=== PATIENT | female | born 1965 | race Caucasian/White ===

== ENCOUNTER 2023-03-20 09:01 | Outpatient (AMB) | payer OTHER, SELFPAY ==
[2023-03-20 09:05] VITALS: BP 138/90; PULSE 79; RESP 13; TEMP 36.3; O2SAT 99; BMI 47.4
--- NOTE | 2023-03-20 09:05 | MHC.PC.OV ---
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 Corridor Redevelopment Manager Required: No Accompanied by: Self / Same As Patient Allergies No Known Allergies Allergy (Verified 03/20/23 09:41) Medication List - Last Reconciled 03/20/23 by Abimbola Mahmood CNP hydrochlorothiazide 25 mg PO DAILY Tobacco use date assessed: 03/20/23 Dental Screening Dental Screen Date: 03/20/23 Did you have a dental visit in the last 12 months?: Yes Did you have a dental problem in the last 6 months where you did not have access to dental care?: No Was dental information given to patient?: Patient has dentist HPI HPI Comments History of Present Illness Details 57-year-old female presents to [facility] care. She notes that she was last evaluated by her former PCP and had routine blood work done 4 years ago. She has past medical history significant for HTN and on HCTZ which she notes she has not taken for the past 3 weeks because she ran out. She notes that she has been getting her medication refill from Urgent Care clinics. She also reports persistent low back pain with right sciatica for the past year and a half. She denies tingling, numbness, loss of sensation, or loss of bowel or bladder control. She had an MRI 10 months ago which revealed bulge/slip-disc, L4 on L5. She takes Ibuprofen for severe pain with significant improvement. She states that she has been making healthy dietary choices. She is also more outdoors and walks frequently. She started using an ashley 2 weeks ago for diet and weight management. She has lost 5 lb since she started using the ashley. She denies acute symptoms at this time. She notes that her last mammogram was 5 years ago: normal Her last pap smear was 4-5 years ago: normal She states that her last colonoscopy was 7-8 years ago from her former PCP: normal She notes she has not had the shringrix vaccines. 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 1. Little interest or pleasure in doing things: not at all 2. Feeling down, depressed, or hopeless: not at all 3. Trouble falling or staying asleep, or sleeping too much: not at all 4. Feeling tired or having little energy: not at all 5. Poor appetite or overeating: not at all 6. Feeling bad about yourself - or that you are a failure or have let yourself or your family down: not at all 7. Trouble concentrating on things, such as reading the newspaper or watching television: not at all 8. Moving or speaking so slowly that other people could have noticed. Or the opposite - being so fidgety or restless that you have been moving around a lot more than usual: not at all 9. Thoughts that you would be better off or of hurting yourself in some way: not at all Total score: 0 Depression Screening Interpretation: Negative Depression Screening Done: Yes Source: Developed by Drs. Benjamín Hodge, Ghazal Terrazas, Klaus Solo and colleagues, with an educational olive from [employer]. Thrive Questionnaire Date Thrive assessed: 03/20/23 I am a: Patient What is your living situation today?: I have a steady place to live Within the past 12 months, did the food you bought not last and you didn't have the money to get more?: Never true Within the past 12 months, did you worry whether your food would run out before you got money to buy more?: Never true Do you have trouble paying for medicines?: No Do you have trouble getting transportation to medical appointments?: No Do you have trouble paying your heating and electricity bill?: No Do you have trouble taking care of your child, family member or friend?: No Do you have trouble with day-to-day activities such as bathing, preparing meals, shopping, managing finances, etc.?: No Are you currently unemployed and looking for a job?: No Are you interested in more education?: No Please select the resources that you would like help with: None Currently or been in a relationship where the following occur: no concerns reported AUDIT C Alcohol Use Questionnaire (AUDIT-C) 1. How often do you have a drink containing alcohol?: 2-4 times a month 2. How many drinks containing alcohol do you have on a typical day when you are drinking?: 1 or 2 3. How often do you have six or more drinks on one occasion?: Never Total Score: 2 COBY-7 AMB Questionnaire COBY-7 Date COBY - 7 assessed: 03/20/23 Feeling nervous, anxious, or on edge: 0 = Not at all Not being able to stop or control worryin = Not at all Worrying too much about different things: 0 = Not at all Trouble relaxin = Not at all Being so restless that it is hard to sit still: 0 = Not at all Becoming easily annoyed or irritable: 0 = Not at all Feeling afraid as if something awful might happen: 0 = Not at all Total COBY-7 score (0-4 normal; 5-9 mild; 10-14 moderate; 15-21 severe): 0 Source: Developed by Drs. Benjamín Hodge, Ghazal Terrazas, Klaus Solo and colleagues, with an educational olive from [employer]. Review of Systems Const Details: Denies chills, Denies fatigue, Denies fever(s), Denies headache(s) and Denies weakness HEENT Denies change in vision, Denies dizziness, Denies headache(s), Denies hearing loss, Denies nasal congestion, Denies sinus pain, Denies sinus pressure and Denies sore throat Card Denies chest pain, Denies lightheadedness, Denies dyspnea and Denies other (palpitations) Resp Denies cough, Denies dyspnea and Denies wheezing GI Denies abdominal pain, Denies melena, Denies hematochezia, Denies change in bowel habits, Denies dyspepsia and Denies nausea Denies hematuria and Denies dysuria Musc Reports as per HPI Skin/Breast Denies rash, Denies unusual bruising and Denies wounds Neuro Denies abnormal gait, Denies dizziness, Denies headache(s), Denies memory loss, Denies numbness, Denies Sensory deficit (Neuro), Denies tingling and Denies weakness Psych Denies anxiety, Denies depression and Denies memory loss Endo Denies cold intolerance, Denies fatigue, Denies heat intolerance, Denies polydipsia and Denies polyuria Bryce/Lymph Denies easy bleeding and Denies easy bruising Aller/Immun Denies wheezing Physical exam (Primary Care) Vital Signs: Last Vital Signs Temp 97.4 F 03/20/23 09:05 Pulse 79 03/20/23 09:05 Resp 13 03/20/23 09:05 BP 138/90 H 03/20/23 09:05 Pulse Ox 99 03/20/23 09:05 Oxygen Delivery Method Room Air 03/20/23 09:05 BMI result Body Mass Index 47.4 Tobacco/Smoking Status: Tobacco use Status Tobacco use date assessed 03/20/23 03/20/23 09:16 Patient Tobacco Use Status Never used Tobacco 03/20/23 09:16 e-Cigarette/Vaping Use Never Used 03/20/23 09:16 PHQ-9: PHQ-9 Score PHQ-9: Total score 0 03/20/23 09:19 Depression Screening Interpretation: Negative Thrive Assessment: Date of Thrive Assessment Date Thrive assessed 03/20/23 03/20/23 09:16 Currently or been in a relationship where the following occur: no concerns reported Const Other: General: no acute distress, well developed, alert and awake Nutritional Appearance: well nourished Orientation/consciousness: patient oriented x3 HENMT Head: Yes normocephalic and Yes atraumatic Ears: hearing grossly normal bilaterally and TM's normal bilaterally General nose exam: Normal external nose present and Normal nares present Mouth: Normal oral and palatal mucosa present and moist mucous membranes Teeth and gingiva: dentition normal Throat: Yes oropharynx normal Eyes Pupils: Equal, round and reactive pupils present and Pupil accommodation reflex normal EOM: EOMs intact bilaterally Neck Neck: Yes normal visual inspection, Yes no lymphadenopathy and Yes trachea midline Thyroid: Thyroid normal Carotids: no bruits Lymphatic: no lymphadenopathy noted Chest Chest palpation & inspection: normal inspection of the chest Resp Effort & Inspection: normal respiratory effort Auscultation: clear to auscultation bilaterally Cardio Rate: regular rate Rhythm: regular rhythm Heart sounds: S1 normal heart sound present, S2 normal heart sound present, no gallops, no murmurs and no rubs Bruits: no abdominal aortic bruits and no carotid bruits GI Palpation (GI): No Abdominal aortic bruit present, Soft to palpation, nontender, No hepatosplenomegaly present and No Rebound tenderness present Auscultation: normal bowel sounds General: Yes no CVA tenderness Back/Spine/Pelvis Back: no CVA tenderness Cervical Spine: cervical ROM normal and No Cervical spine tenderness Thoracic/Lumbar Spine: thoraco-lumbar ROM normal, No pain with thoraco-lumbar ROM, No thoracic spinal tenderness and No lumbar spinal tenderness Skin General: warm and dry. Normal skin color. Normal skin turgor Lesions: no lesions Rashes: no rashes Trauma: no lacerations or abrasions Wounds: no wounds Nails: normal Neuro General: patient oriented x3, gait normal and CN's II-XI intact bilaterally Cranial nerves: Yes Equal, round and reactive pupils present Cognition (Neuro): normal cognition Gait exam (Neuro): Normal gait present Motor exam (neuro): 5/5 motor strength present throughout Sensory Exam: No Sensory deficit (Neuro) Deep tendon reflexes (DTR's): Right patellar reflex intensity grade: 2+ and Left patellar reflex intensity grade: 2+ Extrem General: Yes normal to inspection, No edema and No calf tenderness Negative straight leg raise bilaterally Psych Appearance: grossly normal Affect: normal affect Attitude: cooperative Thought process: Normal thought process present Assessment and Plan Assessment & Plan (1) Normal physical examination, routine: Code(s): Z00.00 - Encounter for general adult medical examination without abnormal findings Plan: No significant physical restrictions or limitations noted. She states that her last colonoscopy was 7-8 years ago from her former PCP: normal. Will request records from former PCP and update care plan as needed. Advised to perform routine fasting blood work before her next visit. Follow-up in 1 month for labs review and hypertension. Verbalized understanding and agreed with the treatment plan. (2) High blood pressure: Code(s): I10 - Essential (primary) hypertension Qualifiers: Hypertension type: primary hypertension Qualified Code(s): I10 - Essential (primary) hypertension Plan: Her resting blood pressure is 138/90, slightly above goal of less than 140/90. She has not been taking HCTZ for the past 3 weeks because she ran out of medication. HCTZ refilled. Take as prescribed. Low-sodium diet and routine exercise encouraged. Follow-up in 1 month or return sooner with symptoms or concerns. Verbalized understanding and agreed with treatment plan. (3) Chronic low back pain with right-sided sciatica: Code(s): M54.41 - Lumbago with sciatica, right side; G89.29 - Other chronic pain Qualifiers: Back pain laterality: right Qualified Code(s): M54.41 - Lumbago with sciatica, right side; G89.29 - Other chronic pain Plan: She reports persistent low back pain with right sciatica for the past year and a half. She had an MRI 10 months ago which revealed bulge/slip-disc, L4 on L5. No tingling, numbness, loss of sensation, or loss of bowel or bladder control. She takes Ibuprofen for severe pain with significant improvement. Naproxen ordered. Take as prescribed. Warm/cool compresses encouraged. Follow-up with worsening or new symptoms. Verbalized understanding and agreed with treatment plan. (4) Morbid obesity with BMI of 45.0-49.9, adult: Code(s): E66.01 - Morbid (severe) obesity due to excess calories; Z68.42 - Body mass index [BMI] 45.0-49.9, adult Plan: She currently weighs 276 lb, BMI is 47.4. She states that she has been making healthy dietary choices. She is also more outdoors and walks frequently. She started using an ashley 2 weeks ago for diet and weight management. She has lost 5 lb since she started using the ashley. She notes she would continue to utilize the ashley before exploring order options for weight management. Instructed on the health risks of obesity and benefits of healthy weight. Healthy diet and routine exercise encouraged. Advised to return if she needs more resources for weight loss. Would referred to interface analyst/dietitian and weight management. Verbalized understanding and agreed with treatment plan. (5) Pap smear for cervical cancer screening: Code(s): Z12.4 - Encounter for screening for malignant neoplasm of cervix Plan: Her last pap smear was 4-5 years ago: normal. Referred [place] [facility] for a Pap smear test. (6) Breast cancer screening: Code(s): Z12.39 - Encounter for other screening for malignant neoplasm of breast Qualifiers: Breast cancer screening modality: mammogram Qualified Code(s): Z12.31 - Encounter for screening mammogram for malignant neoplasm of breast Plan: She notes that her last mammogram was 5 years ago: normal. Screening mammogram ordered. (7) Laboratory tests ordered as part of a complete physical exam (CPE): Code(s): Z00.00 - Encounter for general adult medical examination without abnormal findings (8) Vaccine counseling: Code(s): Z71.85 - Encounter for immunization safety counseling Plan: She notes that she has not had the Shingrix vaccines. Instructed on the health benefits of vaccinations and encouraged to get the Shingrix vaccines. Verbalized understanding and agreed with treatment plan. Orders: Orders Comprehensive Grant. Panel Fast Today Z00.00 - Encounter for general adult medical examination without abnormal findings Lipid Panel Today Z00.00 - Encounter for general adult medical examination without abnormal findings UA CC w/rflx Micro + Cult Today Z00.00 - Encounter for general adult medical examination without abnormal findings Complete Blood Count Auto Diff Today Z00.00 - Encounter for general adult medical examination without abnormal findings TSH reflex Free T4 Today Z00.00 - Encounter for general adult medical examination without abnormal findings MM screening mammo BI Today Z12.31 - Encounter for screening mammogram for malignant neoplasm of breast Referrals [facility] Referral Z12.4 - Encounter for screening for malignant neoplasm of cervix Medications: New naproxen 500 mg PO BID PRN 60 tabs 1RF pain hydrochlorothiazide 25 mg PO DAILY 30 days 30 tabs 3RF Coding Level of Care Code New Pt Level 4 (99143) New Pt Prev Care 40-64y(13205) Diagnoses Normal physical examination, routine Z00.00 Primary hypertension I10 Hypertension type: primary hypertension Chronic right-sided low back pain with right-sided sciatica M54.41; G89.29 Back pain laterality: right Morbid obesity with BMI of 45.0-49.9, adult E66.01; Z68.42 Pap smear for cervical cancer screening Z12.4 Encounter for screening mammogram for malignant neoplasm of breast Z12.31 Breast cancer screening modality: mammogram Laboratory tests ordered as part of a complete physical exam (CPE) Z00.00 Vaccine counseling Z71.85
== END 2023-03-20 10:13 | disposition home or self-care (01) ==
PROVIDERS: PCP Nurse Practitioner Family; Visit Provider Nurse Practitioner Family
DX: Z00.00 Encounter for general adult medical examination without abnormal findings (principal); I10 Essential (primary) hypertension; E66.01 Morbid (severe) obesity due to excess calories; Z68.42 Body mass index [BMI] 45.0-49.9, adult; M54.41 Lumbago with sciatica, right side; G89.29 Other chronic pain; Z12.31 Encounter for screening mammogram for malignant neoplasm of breast; Z71.85 Encounter for immunization safety counseling
CPT/HCPCS: 99386

== ENCOUNTER 2023-03-25 | Outpatient (REF) | payer OTHER, SELFPAY ==
[2023-03-25 11:13] LABS: MANUAL DIFF FLAG NO
[2023-03-25 11:21] LABS: Appearance Urine Clear; Color Urine Yellow; Glucose Urine UA Negative (Negative); Leukocyte Esterase Urine Negative (Negative); Nitrite Urine Negative (Negative); Specific Gravity - Urine 1.015 (1.005-1.025); Urine Blood Negative (Negative); Urine Ketones Negative (Negative); Urine Protein Negative (Neg-Trace)
[2023-03-25 11:40] LABS: Basophils Absolute Auto 0.1 X10*3/uL (0.0-0.2); Basophils Percent Auto 0.7 % (0-2); Eosinophils Absolute Auto 0.4 X10*3/uL (0.0-0.4); Eosinophils Percent Auto 5.9 % (0-4); Hematocrit 44.3 % (37.0-47.0); Hemoglobin 15.3 g/dl (12.0-16.0); Imm Gran Abs Auto 0.04 X10*3/uL (0.00-0.03); Imm Gran Pct Auto 0.6 % (0.0-0.4); Lymphocytes Absolute Auto 2.2 X10*3/uL (1.2-4.9); Lymphocytes Percent Auto 31.3 % (20-40); Mean Corpuscular HGB Conc 34.5 g/dl (31.0-35.0); Mean Corpuscular Hemoglobin 29.6 pg (27.0-33.0); Mean Corpuscular Volume 85.7 fL (80.0-98.0); Mean Platelet Volume 9.9 fL (9.4-12.3); Monocytes Absolute Auto 0.4 X10*3/uL (0.1-1.2); Monocytes Percent Auto 5.3 % (2-11); Neutrophils Absolute Auto 3.9 x10*3/uL (2.0-8.3); Neutrophils Percent Auto 56.2 % (45-73); Platelet Count 255 X10*3/uL (160-400); Red Blood Count 5.17 X10*6/uL (4.20-5.50); Red Cell Distribution Width 11.8 % (11.0-16.0)
[2023-03-25 12:38] LABS: Alanine Aminotransferase 28 U/L (0-31); Albumin Level 4.4 g/dL (3.5-5.0); Alkaline Phosphatase 71 U/L (39-117); Anion Gap 17 (12-20); Aspartate Amino Transferase 33 U/L (5-31); Bilirubin Total 0.6 mg/dL (0.0-1.0); Blood Urea Nitrogen 13 mg/dL (9-16); Calcium 10.2 mg/dL (8.4-10.2); Carbon Dioxide 25 mmol/L (22-29); Chloride 101 mmol/L (96-108); Cholesterol 202 mg/dL (<200); Estimated Glomerular Filt Rate > 60; Glucose Fasting 107 mg/dL (60-99); HDL Cholesterol 49 mg/dL (>40); LDL Cholesterol Calculated 124 mg/dL (<100); Potassium 3.9 mmol/L (3.3-5.1); Sodium 139 mmol/L (135-145); Total Protein 7.4 g/dL (6.5-8.0); Triglycerides 145 mg/dL (<150)
[2023-03-25 12:43] LABS: TSH reflex Free T4 1.08 uIU/mL (0.32-4.0)
== END 2023-03-25 00:01 | disposition home or self-care (01) ==
LOC: HO.WFDLDS
PROVIDERS: Visit Provider Nurse Practitioner Family
DX: Z00.00 Encounter for general adult medical examination without abnormal findings (principal)
CPT/HCPCS: 36415; 80053; 80061; 81003; 84443; 85025

== ENCOUNTER 2023-04-18 12:30 | Outpatient (AMB) | payer OTHER, SELFPAY ==
[2023-04-18 12:36] VITALS: BP 128/72; PULSE 74; O2SAT 97; BMI 47.6
--- NOTE | 2023-04-18 12:36 | MHC.PC.OV ---
Vital Signs 04/18/23 12:36 Height 5 ft 4 in Weight 277 lb 2 oz BMI 47.6 BP 128/72 Blood Pressure Location Lt brachial Position Sitting Pulse 74 Pulse Source Pulse Oximeter Pulse Oximetry (%) 97 Oxygen Delivery Method Room Air Intake Visit Reasons: 1 month HTN, labs review Intake Note: Patient is here for lab review today. Allergies No Known Allergies Allergy (Verified 04/18/23 12:37) Tobacco use date assessed: 04/18/23 HPI HPI Comments History of Present Illness Details 57-year-old female presents for hypertension and review of recent blood work. She established care almost a month ago. A physical exam was performed. Hydrochlorothiazide was refilled. Screening mammograms was ordered. She was referred to [facility] diabetes territory manager for a Pap smear test. She admits to taking her medications as prescribed. She offers no complaints and denies acute symptoms at this time. She notes that she has appointment schedule for Pap smear tests and mammogram next october. She states that she is traveling in with her to [place] and will return next September. 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 Benjamín Hodge, Ghazal Terrazas, Klaus Solo and colleagues, with an educational olive from [employer]. Review of Systems Const Details: Const Denies chills, Denies fatigue, Denies fever(s), Denies headache(s) and Denies weakness ENT Denies dizziness and Denies headache(s) Card Denies chest pain, Denies lightheadedness, Denies dyspnea and Denies other (Palpitations) Resp Denies cough, Denies dyspnea, Denies wheezing and Denies other ( shortness of breath) GI Denies abdominal pain, Denies melena, Denies hematochezia, Denies change in bowel habits, Denies dyspepsia and Denies nausea Denies hematuria and Denies dysuria Musc Denies abnormal gait, Denies myalgias, Denies arthralgias, Denies numbness and Denies tingling Skin/Breast Denies rash, Denies unusual bruising and Denies wounds Neuro Denies abnormal gait, Denies dizziness, Denies headache(s), Denies memory loss, Denies numbness, Denies Sensory deficit (Neuro), Denies tingling and Denies weakness Psych Denies anxiety, Denies depression, Denies memory loss Endo Denies cold intolerance, Denies fatigue, Denies heat intolerance, Denies polydipsia and Denies polyuria Aller/Immun Denies wheezing Physical exam (Primary Care) BMI result Body Mass Index 47.6 Tobacco/Smoking Status: Tobacco use Status Tobacco use date assessed 03/20/23 03/20/23 09:16 Patient Tobacco Use Status Never used Tobacco 03/20/23 09:16 e-Cigarette/Vaping Use Never Used 03/20/23 09:16 Thrive Assessment: Date of Thrive Assessment Date Thrive assessed 03/20/23 03/20/23 09:16 Const Other: General: no acute distress and well developed Nutritional Appearance: well nourished Orientation/consciousness: patient oriented x3 HENMT Head: Yes normocephalic and Yes atraumatic Eyes General: appearance normal, both eyes and all related structures Pupils: Equal, round and reactive pupils present EOM: EOMs intact bilaterally Resp Effort & Inspection: normal respiratory effort Auscultation: clear to auscultation bilaterally Cardio Rate: regular rate Rhythm: regular rhythm Heart sounds: S1 normal heart sound present, S2 normal heart sound present, no gallops, no murmurs and no rubs GI Palpation (GI): No Abdominal aortic bruit present, Soft to palpation, nontender, No hepatosplenomegaly present and No Rebound tenderness present Auscultation: normal bowel sounds General: Yes no CVA tenderness Back/Spine/Pelvis Back: no CVA tenderness Cervical Spine: cervical ROM normal and No Cervical spine tenderness Thoracic/Lumbar Spine: thoraco-lumbar ROM normal, No pain with thoraco-lumbar ROM, No thoracic spinal tenderness and No lumbar spinal tenderness Extrem General: Yes normal to inspection, No edema and No calf tenderness Skin General: warm and dry. Normal skin color. Normal skin turgor Lesions: no lesions Rashes: no rashes Trauma: no lacerations or abrasions Wounds: no wounds Nails: normal Neuro General: patient oriented x3, gait normal and no focal neuro deficit Cranial nerves: Yes Equal, round and reactive pupils present Cognition (Neuro): normal cognition Gait exam (Neuro): Normal gait present Sensory Exam: No Sensory deficit (Neuro) Psych Appearance: grossly normal Affect: normal affect Attitude: cooperative Thought process: Normal thought process present Assessment and Plan Assessment & Plan (1) High blood pressure: Code(s): I10 - Essential (primary) hypertension Qualifiers: Hypertension type: primary hypertension Qualified Code(s): I10 - Essential (primary) hypertension Plan: Blood pressure is 128/72, within goal of less than 140/90 Continue with current treatment regimen Low-sodium diet encouraged Will continue to monitor Follow-up in upon returning from [place] or return sooner with symptoms or concerns Verbalized understanding and agreed with treatment plan. (2) Elevated fasting glucose: Code(s): R73.01 - Impaired fasting glucose Plan: Recent lab results reviewed with the patient Fasting blood glucose was slightly elevated, 107 Will repeat fasting glucose. Advised to fast for 10-12 hours (may drink water only) before getting blood work done Follow-up upon returning from [place] or return sooner with symptoms or concerns Verbalized understanding and agreed with treatment plan. (3) Elevated LDL cholesterol level: Code(s): E78.00 - Pure hypercholesterolemia, unspecified Plan: Recent LDL is slightly elevated, 124 Advised to limit foods high in saturated fat and avoid foods high in trans fat Routine exercise encouraged Will recheck lipid levels. Advised to fast for 10-12 hours (may drink water only) and perform blood work 2-3 days before her next visit Follow-up upon returning from [place] Verbalized understanding and agreed with treatment plan. Orders: Orders Lipid Panel 3 Months E78.00 - Pure hypercholesterolemia, unspecified Glucose Fasting 3 Months R73.01 - Impaired fasting glucose Coding Level of Care Code Est Pt Level 3 (83957) Diagnoses Primary hypertension I10 Hypertension type: primary hypertension Elevated fasting glucose R73.01 Elevated LDL cholesterol level E78.00
== END 2023-04-18 12:53 | disposition home or self-care (01) ==
PROVIDERS: PCP Nurse Practitioner Family; Visit Provider Nurse Practitioner Family
DX: I10 Essential (primary) hypertension (principal); R73.01 Impaired fasting glucose; E78.00 Pure hypercholesterolemia, unspecified
CPT/HCPCS: 99213

== ENCOUNTER 2023-10-22 08:25 | Outpatient (REF) | payer OTHER, SELFPAY ==
--- NOTE | ~2023-10-22 | MM_ITS ---
EXAMINATION: MM SCREENING DIGITAL BREAST TOMOSYNTHESIS, BILATERAL CLINICAL INFORMATION: Screening. Asymptomatic. COMPARISON: Mammography: This study is compared with prior exams dating back to 2012. TECHNIQUE: Digital breast tomosynthesis is performed in both the craniocaudal and mediolateral oblique views along with computer-aided detection (CAD). Synthesized 2D images are generated from the tomosynthesis. FINDINGS: The breasts are heterogeneously dense, which may obscure small masses (ACR BI-RADS breast composition Category c). There are no suspicious masses in either breast. There are several groups of calcification in all quadrants of the left breast. In the medial aspect of the right breast right breast, there are grouped calcifications. Bilateral additional imaging with magnification mammography is indicated. There is a 23 mm oval, coarsely calcifying, benign mass in the upper outer quadrant of the right breast. This represents an involuting fibroadenoma. MM/MM tomosynthesis screening BI IMPRESSION: Bilateral calcifications warrant magnification mammography. ASSESSMENT: BI-RADS BI-RADS 0 - Incomplete: Needs additional Imaging. RECOMMENDATION: Additional views of each breast. Radiology department staff will contact the patient for additional imaging. Additional Imaging required This examination should not preclude the clinical evaluation of a suspicious palpable abnormality. This patient's information was entered into a reminder system with a target due date for their next mammogram.
== END 2023-10-22 08:26 | disposition home or self-care (01) ==
LOC: HO.MAMMO 08:25
PROVIDERS: PCP Nurse Practitioner Family; Visit Provider Nurse Practitioner Family
DX: Z12.31 Encounter for screening mammogram for malignant neoplasm of breast (principal)
CPT/HCPCS: 77063; 77067

== ENCOUNTER → 2023-10-22 09:45 | Outpatient (BNV) | payer OTHER, SELFPAY | PROVIDERS: PCP Nurse Practitioner Family; Visit Provider Radiology Diagnostic Radiology | DX: Z12.31 Encounter for screening mammogram for malignant neoplasm of breast (principal) | CPT/HCPCS: 77063; 77067 ==

== ENCOUNTER 2023-10-22 10:25 | Outpatient (AMB) | payer OTHER, SELFPAY ==
--- NOTE | 2023-10-22 10:36 | A.OFFVIS_ITS ---
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 She is doing well with no concerns. Attempting to eat a healthy diet with calcium and vitamin D and stays active with exercise-walking, recovering from sciatic pain. Currently sexually active. Denies any vaginal dryness or irritation. STI testing offered; she declined. Last pap smear; 2018, negative. History of a hysterectomy due to large fibroid. Last mammogram; pending read. Colonoscopy is UTD. Denies any family history of breast, ovarian or colon cancer. 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 Cognitive needs: No Hearing needs: No Vision needs: No Female Reproductive History Menstrual Age of Menarche: 11 control method: permanent sterilization Total pregnancies: 0 Date of Mammogram: 10/22/23 Review of Systems Const All systems reviewed & are unremarkable except as noted in HPI and below Reports as per HPI Eyes Reports no additional complaints ENT Reports no additional complaints Card Reports no additional complaints Resp Reports no additional complaints GI Reports as per HPI and Reports no additional complaints Reports as per HPI Musc Reports no additional complaints Skin/Breast Reports as per HPI Neuro Reports no additional complaints Psych Reports no additional complaints Endo Reports no additional complaints Bryce/Lymph Reports no additional complaints Aller/Immun Reports no additional complaints Physical Exam Vital Signs: Last Vital Signs BP 140/84 H 10/22/23 10:39 BMI result Body Mass Index 46.5 Const General: cooperative, healthy appearing, no acute distress, well developed and alert Orientation/consciousness: patient oriented x3 HEENT Head: Yes normal to inspection Eyes General: appearance normal, both eyes and all related structures Neck Neck: Yes normal visual inspection Thyroid: Thyroid normal Chest Chest palpation & inspection: normal inspection of the chest and other (no puckering, dimpling, peau de orange, retraction, discharge, masses) Breast/axilla inspection: normal inspection of the breasts Breast/axilla palpation: normal palpation of the breasts Resp Effort & Inspection: normal respiratory effort GI Inspection: Yes normal to inspection, Yes obesity and Yes scar Palpation (GI): Soft to palpation Rectal Exam - Female: deferred General: Yes bladder normal to palpation External Female Exam: normal external appearance and normal appearance of the urethra Speculum Exam - Vagina: normal appearance of the vagina, normal palpation and normal vaginal discharge Speculum Exam - Cervix: normal appearance of the cervix and normal palpation Bimanual exam- vagina & uterus: normal bimanual exam, normal palpation, bladder normal to palpation, normal palpation and uterus absent Bimanual Exam- Adnexa, other: no masses Skin General skin exam: no rashes or lesions noted Rashes: no rashes Neuro General: patient oriented x3 Cognition (Neuro): normal cognition Extrem General: Yes normal to inspection Psych Attitude: cooperative Thought process: Normal thought process present Assessment & Plan Assessment & Plan (1) Encounter for well woman exam with routine gynecological exam: Code(s): Z01.419 - Encounter for gynecological examination (general) (routine) without abnormal findings Category: Medical Plan: Discussed: Current recommendations for pap smears per ASCCP guidelines. Breast awareness, periodic self breast exams and yearly mammogram. Maintain a healthy lifestyle, well balanced diet including Calcium 1,200 mg and Vitamin D 600 IU daily, and routine exercise. Contact the office with any postmenopausal bleeding. Patient verbalizes understanding and agrees to the plan of care. She was given opportunity to ask questions and all questions were answered to the best of my ability. RTO in 1 year for annual mobile web application developer exam. This note is constructed using voice recognition software. While every effort has been made to ensure accuracy, sponge press operator errors may have been included. Coding Level of Care Code New Pt Prev Care 40-64y(91512) Diagnoses Encounter for well woman exam with routine gynecological exam Z01.419
[2023-10-22 10:39] VITALS: BP 140/84; BMI 46.5
== END 2023-10-22 12:45 | disposition home or self-care (01) ==
PROVIDERS: PCP Nurse Practitioner Family; Visit Provider Advanced Practice Midwife
DX: Z01.419 Encounter for gynecological examination (general) (routine) without abnormal findings (principal)
CPT/HCPCS: 99386

== ENCOUNTER 2023-10-22 11:04 | Outpatient (REF) | payer OTHER, SELFPAY ==
[2023-10-29 12:49] LABS: HPV mRNA E6/E7 rflx Not Detected (Not Detected)
== END 2023-10-22 11:05 | disposition home or self-care (01) ==
LOC: HO.LNP 11:04
PROVIDERS: Visit Provider Advanced Practice Midwife
DX: Z12.4 Encounter for screening for malignant neoplasm of cervix (principal)
CPT/HCPCS: 87624; 88142

== ENCOUNTER 2023-12-06 14:30 | Outpatient (REF) | payer OTHER, SELFPAY ==
--- NOTE | ~2023-12-06 | MM_ITS ---
EXAMINATION: MM DIAGNOSTIC DIGITAL MAMMOGRAPHY, BILATERAL CLINICAL INFORMATION: Evaluate bilateral groups of calcifications, in all quadrants of the left breast, and medial aspect of the right breast. COMPARISON: Mammography: 10/22/2023 ([facility]), 11/15/2011, 11/13/2011, 12/07/2010, 10/20/2010, 10/25/2009, 10/18/2009 ([facility]). TECHNIQUE: Digital mammography is performed in the following views: 2-D spot magnification views right breast CC and LM x2, as well as left CC x2, and ML x2. Computer-aided diagnosis was used for this study. FINDINGS: The breasts are heterogeneously dense, which may obscure small masses (ACR BI-RADS breast composition Category c). Several groups of calcifications in the left breast and medial right breast all appear to layer on the 90 degree mediolateral views and lateral medial views, and have a smudgy type appearance on the CC views. These are all consistent with milk of calcium and benign. In retrospect, these were worked up in 2010 and 2009 previously, with same conclusion. There is a calcified mass in the outer quadrant of the right breast measuring 2.3 cm consistent with a calcified fibroadenoma. Smaller calcified fibroadenoma noted 5:00 axis right breast. MM/MM added views BI IMPRESSION: Bilateral groups of calcifications are benign, consistent with milk of calcium. No further follow-up recommended. These were worked up previously in 2010 and 2009, with same conclusion. Benign masses right breast consistent with fibroadenomas. Recommend the patient return to routine annual mammography. ASSESSMENT: BI-RADS BI-RADS 2 - Benign Findings RECOMMENDATION: 1 year F/U This patient's information was entered into a reminder system with a target due date for their next mammogram.
== END 2023-12-06 14:31 | disposition home or self-care (01) ==
LOC: HO.MAMMO 14:30
PROVIDERS: PCP Nurse Practitioner Family; Visit Provider Nurse Practitioner Family
DX: R92.0 Mammographic microcalcification found on diagnostic imaging of breast (principal)
CPT/HCPCS: 77066

== ENCOUNTER → 2023-12-06 14:30 | Outpatient (BNV) | payer OTHER, SELFPAY | PROVIDERS: PCP Nurse Practitioner Family; Visit Provider Radiology Diagnostic Radiology | DX: R92.1 Mammographic calcification found on diagnostic imaging of breast (principal); N60.21 Fibroadenosis of right breast | CPT/HCPCS: 77066 ==

== ENCOUNTER 2024-02-17 15:27 | Outpatient (AMB) | payer OTHER, SELFPAY ==
--- NOTE | 2024-02-17 15:30 | MHC.PC.OV ---
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 Required: No Is last menstrual period known: No Post menopausal: No Patient : No Allergies No Known Allergies Allergy (Verified 02/17/24 15:48) Medication List - Last Reconciled 02/17/24 by Abimbola Mahmood CNP gabapentin 100 mg PO BEDTIME hydrochlorothiazide 25 mg PO DAILY 90 days ibuprofen 400 mg PO Q8H Tobacco use date assessed: 02/17/24 Dental Screening Dental Screen Date: 02/17/24 Did you have a dental visit in the last 12 months?: Yes Did you have a dental problem in the last 6 months where you did not have access to dental care?: No Was dental information given to patient?: Patient has dentist HPI HPI Comments History of Present Illness Details 58-year-old female presents present with complaints of blood in her urine once last week and yesterday morning. She described the urine as pinkish-orange. She also reports intermittent left lower abd quad pain for about 2 years. She denies urinary frequency/urgency, disuria, or discharge with urination. No constitutional symptoms. She admits to adequate hydration. 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 Benjamín Hodge, Ghazal Terrazas, Klaus Solo and colleagues, with an educational olive from [employer]. Review of Systems Const Details: Const Denies chills, Denies fatigue, Denies fever(s), Denies headache(s) and Denies weakness ENT Denies dizziness and Denies headache(s) Card Denies chest pain, Denies lightheadedness, Denies dyspnea and Denies other (Palpitations) Resp Denies cough, Denies dyspnea, Denies wheezing and Denies other ( shortness of breath) GI Denies abdominal pain, Denies melena, Denies hematochezia, Denies change in bowel habits, Denies dyspepsia and Denies nausea Reports as per HPI Musc Denies abnormal gait, Denies myalgias, Denies arthralgias, Denies numbness and Denies tingling Skin/Breast Denies rash, Denies unusual bruising and Denies wounds Neuro Denies abnormal gait, Denies dizziness, Denies headache(s), Denies memory loss, Denies numbness, Denies Sensory deficit (Neuro), Denies tingling and Denies weakness Psych Denies anxiety, Denies depression, Denies memory loss Endo Denies cold intolerance, Denies fatigue, Denies heat intolerance, Denies polydipsia and Denies polyuria Aller/Immun Denies wheezing Physical exam (Primary Care) Vital Signs: Last Vital Signs Temp 97.3 F 02/17/24 15:35 Pulse 70 02/17/24 15:35 Resp 16 02/17/24 15:35 BP 150/70 H 02/17/24 15:35 Pulse Ox 98 02/17/24 15:35 Oxygen Delivery Method Room Air 02/17/24 15:35 BMI result Body Mass Index 45.9 Tobacco/Smoking Status: Tobacco use Status Tobacco use date assessed 02/17/24 02/17/24 15:38 Patient Tobacco Use Status Never used Tobacco 02/17/24 15:32 e-Cigarette/Vaping Use Never Used 02/17/24 15:32 Thrive Assessment: Date of Thrive Assessment Date Thrive assessed 03/20/23 02/17/24 15:32 Const Other: General: no acute distress and well developed Nutritional Appearance: well nourished Orientation/consciousness: patient oriented x3 [facility]: Yes normocephalic and Yes atraumatic Eyes General: appearance normal, both eyes and all related structures Pupils: Equal, round and reactive pupils present EOM: EOMs intact bilaterally Resp Effort & Inspection: normal respiratory effort Auscultation: clear to auscultation bilaterally Cardio Rate: regular rate Rhythm: regular rhythm Heart sounds: S1 normal heart sound present, S2 normal heart sound present, no gallops, no murmurs and no rubs GI Palpation (GI): No Abdominal aortic bruit present, Soft to palpation, nontender, No hepatosplenomegaly present and No Rebound tenderness present Auscultation: normal bowel sounds General: Yes no CVA tenderness Back/Spine/Pelvis Back: no CVA tenderness Cervical Spine: cervical ROM normal and No Cervical spine tenderness Thoracic/Lumbar Spine: thoraco-lumbar ROM normal, No pain with thoraco-lumbar ROM, No thoracic spinal tenderness and No lumbar spinal tenderness Extrem General: Yes normal to inspection, No edema and No calf tenderness Skin General: warm and dry. Normal skin color. Normal skin turgor Neuro General: patient oriented x3, gait normal and no focal neuro deficit Cranial nerves: Yes Equal, round and reactive pupils present Cognition (Neuro): normal cognition Gait exam (Neuro): Normal gait present Sensory Exam: No Sensory deficit (Neuro) Psych Appearance: grossly normal Affect: normal affect Attitude: cooperative Thought process: Normal thought process present Results AMB Urinalysis Dipstick UR Leukocytes Trace Last Edit by Tara Franklin on 02/17/24 16:15 UR Nitrite Negative Last Edit by Tara Franklin on 02/17/24 16:15 UR Urobilinogen Normal Last Edit by Tara Franklin on 02/17/24 16:15 UR Protein Trace Last Edit by Tara Franklin on 02/17/24 16:15 UR Ph 6.0 Last Edit by Tara Franklin on 02/17/24 16:15 UR Blood Negative Last Edit by Tara Franklin on 02/17/24 16:15 UR Specific [place] 1.025 Last Edit by Tara Franklin on 02/17/24 16:15 UR Ketone Negative Last Edit by Tara Franklin on 02/17/24 16:15 UR Bilirubin Negative Last Edit by Tara Franklin on 02/17/24 16:15 UR Glucose Negative Last Edit by Tara Franklin on 02/17/24 16:15 Assessment and Plan Assessment & Plan (1) Hematuria: Code(s): R31.9 - Hematuria, unspecified Qualifiers: Hematuria type: unspecified type Qualified Code(s): R31.9 - Hematuria, unspecified Plan: Blood in urine onces last week and this week CVA non tender to palpation Abdomen is soft, nontender, nondistended, active bowel sounds x4 Urinalysis is positive for trace leukocytes. Blood and nitrites are negative; UTI is unlikely Will send urine sample to the lab for culture and sensitivity Advised to get lab work done and follow-up in 1 month for an extended physical exam or return sooner with symptoms or concerns Verbalized understanding and agreed with treatment plan (2) High blood pressure: Code(s): I10 - Essential (primary) hypertension Qualifiers: Hypertension type: primary hypertension Qualified Code(s): I10 - Essential (primary) hypertension Plan: Resting blood pressure is 150/70, above goal of less than 140/90 Continue to take hydrochlorothiazide as prescribed Lisinopril 10 mg daily ordered. Advised to take as prescribed. Instructed on the risks, benefits, and potential adverse reactions of the medication Low-sodium diet encouraged Follow-up in 1 month Verbalized understanding and agreed with the treatment plan Orders: Orders AMB Urinalysis Dipstick Today Z13.9 - Encounter for screening, unspecified Medications: New lisinopril 10 mg PO DAILY 30 days 30 tabs 3RF Coding Level of Care Code Est Pt Level 4 (65654) Complex EM visit Add On G2211 Diagnoses Hematuria, unspecified type R31.9 Hematuria type: unspecified type Primary hypertension I10 Hypertension type: primary hypertension
[2024-02-17 15:35] VITALS: BP 150/70; PULSE 70; RESP 16; TEMP 36.3; O2SAT 98; BMI 45.9
== END 2024-02-17 16:05 | disposition home or self-care (01) ==
PROVIDERS: PCP Nurse Practitioner Family; Visit Provider Nurse Practitioner Family
DX: R31.9 Hematuria, unspecified (principal); I10 Essential (primary) hypertension; Z13.9 Encounter for screening, unspecified
CPT/HCPCS: 81002; 99214

== ENCOUNTER 2024-02-17 18:16 | Outpatient (REF) | payer OTHER, SELFPAY ==
[2024-02-17 18:35] LABS: Appearance Urine Clear; Color Urine Yellow; Glucose Urine UA Negative (Negative); Leukocyte Esterase Urine Small (1+) (Negative); Nitrite Urine Negative (Negative); PH 5.5 (5.0-9.0); Specific Gravity - Urine 1.015 (1.005-1.025); UMIC TRIGGER UACC YES; Urine Blood Negative (Negative); Urine Ketones Negative (Negative); Urine Protein Negative (Neg-Trace)
[2024-02-17 18:43] LABS: Bacteria Urine 1+ (None Seen); Hyaline Casts Urine 0-2 /LPF (0-2); RBC Urine 0-2 /HPF (0-2); Squamous Epithelial Cell Urine 0-2 /HPF (0-2); UACC Culture Trigger YES; WBC Urine 21-50 /HPF (0-5)
[2024-02-17 18:45] LABS: Creatinine Urine 79.61 mg/dL; Microalbum/Creatinine Ratio Ur 28.8 ug/mg cr (<30)
== END 2024-02-17 18:17 | disposition home or self-care (01) ==
LOC: HO.LNP 18:16
PROVIDERS: Visit Provider Nurse Practitioner Family
DX: Z00.00 Encounter for general adult medical examination without abnormal findings (principal); R82.79 Other abnormal findings on microbiological examination of urine
CPT/HCPCS: 81001; 82043; 82570; 87086; 87088; 87186

== ENCOUNTER 2024-02-19 09:23 | Outpatient (REF) | payer OTHER, SELFPAY ==
[2024-02-19 11:28] LABS: MANUAL DIFF FLAG NO
[2024-02-19 11:35] LABS: Basophils Percent Auto 0.6 % (0-2); Eosinophils Absolute Auto 0.4 X10*3/uL (0.0-0.4); Eosinophils Percent Auto 6.1 % (0-4); Hematocrit 43.1 % (37.0-47.0); Imm Gran Abs Auto 0.03 X10*3/uL (0.00-0.03); Imm Gran Pct Auto 0.5 % (0.0-0.4); Lymphocytes Absolute Auto 2.2 X10*3/uL (1.2-4.9); Lymphocytes Percent Auto 32.5 % (20-40); Mean Corpuscular HGB Conc 34.8 g/dl (31.0-35.0); Mean Corpuscular Hemoglobin 29.7 pg (27.0-33.0); Mean Corpuscular Volume 85.3 fL (80.0-98.0); Mean Platelet Volume 10.2 fL (9.4-12.3); Monocytes Absolute Auto 0.4 X10*3/uL (0.1-1.2); Monocytes Percent Auto 5.9 % (2-11); Neutrophils Absolute Auto 3.6 x10*3/uL (2.0-8.3); Neutrophils Percent Auto 54.4 % (45-73); Platelet Count 272 X10*3/uL (160-400); Red Blood Count 5.05 X10*6/uL (4.20-5.50); Red Cell Distribution Width 12.2 % (11.0-16.0); White Blood Count 6.6 X10*3/uL (4.8-10.8)
[2024-02-19 12:11] LABS: Alanine Aminotransferase 22 U/L (0-31); Albumin Level 4.1 g/dL (3.5-5.0); Alkaline Phosphatase 70 U/L (39-117); Anion Gap 13 (12-20); Aspartate Amino Transferase 21 U/L (5-31); Bilirubin Total 0.4 mg/dL (0.0-1.0); Blood Urea Nitrogen 17 mg/dL (9-16); Carbon Dioxide 28 mmol/L (22-29); Chloride 104 mmol/L (96-108); Cholesterol 175 mg/dL (<200); Estimated Glomerular Filt Rate > 60; Glucose Fasting 136 mg/dL (60-99); HDL Cholesterol 44 mg/dL (>40); LDL Cholesterol Calculated 105 mg/dL (<100); Potassium 3.4 mmol/L (3.3-5.1); Sodium 142 mmol/L (135-145); TSH reflex Free T4 1.16 uIU/mL (0.32-4.0); Total Protein 6.8 g/dL (6.5-8.0); Triglycerides 132 mg/dL (<150)
[2024-02-19 12:37] LABS: Appearance Urine Turbid; Color Urine Yellow; Glucose Urine UA Negative (Negative); Leukocyte Esterase Urine Large (3+) (Negative); Nitrite Urine Negative (Negative); Specific Gravity - Urine 1.015 (1.005-1.025); UMIC TRIGGER UACC YES; Urine Blood Small (1+) (Negative); Urine Ketones Negative (Negative); Urine Protein 30 (1+) mg/dL (Neg-Trace)
[2024-02-19 14:53] LABS: Bacteria Urine 4+ (None Seen); Hyaline Casts Urine 0-2 /LPF (0-2); Squamous Epithelial Cell Urine 0-2 /HPF (0-2); UACC Culture Trigger YES; WBC Urine >50 /HPF (0-5)
== END 2024-02-19 09:24 | disposition home or self-care (01) ==
LOC: HO.WFDLDS 09:23
PROVIDERS: Visit Provider Nurse Practitioner Family
DX: Z00.00 Encounter for general adult medical examination without abnormal findings (principal)
CPT/HCPCS: 36415; 80053; 80061; 81001; 81003; 84443; 85025

== ENCOUNTER 2024-03-23 08:06 | Outpatient (AMB) | payer OTHER, SELFPAY ==
--- NOTE | 2024-03-23 08:09 | A.OFFPC_ITS ---
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 Is last menstrual period known: No Post menopausal: No Patient : No Allergies No Known Allergies Allergy (Verified 03/23/24 08:26) Medication List - Last Reconciled 03/23/24 by Abimbola Mahmood CNP gabapentin 100 mg PO BEDTIME hydrochlorothiazide 25 mg PO DAILY 90 days ibuprofen 400 mg PO Q8H lisinopril 10 mg PO DAILY 30 days Tobacco use date assessed: 03/23/24 Dental Screening Dental Screen Date: 03/23/24 Did you have a dental visit in the last 12 months?: Yes Did you have a dental problem in the last 6 months where you did not have access to dental care?: No Was dental information given to patient?: Patient has dentist HPI HPI Comments History of Present Illness Details 58-year-old female presents for an exten ded physical exam She has past medical history significant for hypertension and obesity She is on lisinopril 10 mg daily and hydrochlorothiazide 25 mg daily She admits to making healthy lifestyle changes, including diet and exercise. She generally sleeps well She offers no complaints and denies acute symptoms at this time Nonsmoker. Drinks couple of drinks monthly. No recreational drug use Last eye exam was 2 years ago Last mammogram was in 11/2023:benign Her last pap smear was on 10/23/2023: normal She states that her last colonoscopy was 9 years ago from her former PCP in [place]: normal She notes she has not had the shringrix vaccines Last tetanus vaccine was more than 10 years ago She has never been vaccinated for the flu vaccine and declines vaccination at this time [facility] Medical History High blood pressure Surgical History History of hysterectomy leaving cervix intact H/O gastric sleeve S/P gastric sleeve procedure Family History (Updated 03/23/24 @ 08:22 by Tara Franklin MA) Mother High blood pressure Father High blood pressure Family/Other Diabetes Social History Housing: Other (RV) Housing Other:: RV Alcohol intake: current Alcohol intake frequency: holidays/special occasions only Patient Tobacco Use Status: Never used Tobacco e-Cigarette/Vaping Use: Never Used service: No Current occupational status: employed 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 1. Little interest or pleasure in doing things: not at all 2. Feeling down, depressed, or hopeless: not at all 3. Trouble falling or staying asleep, or sleeping too much: not at all 4. Feeling tired or having little energy: several days 5. Poor appetite or overeating: not at all 6. Feeling bad about yourself - or that you are a failure or have let yourself or your family down: not at all 7. Trouble concentrating on things, such as reading the newspaper or watching television: not at all 8. Moving or speaking so slowly that other people could have noticed. Or the opposite - being so fidgety or restless that you have been moving around a lot more than usual: not at all 9. Thoughts that you would be better off or of hurting yourself in some way: not at all Total score: 1 Depression Screening Interpretation: Negative Depression Screening Done: Yes 93826 - PHQ-9 Billing: Yes Source: Developed by Drs. Benjamín Hodge, Ghazal Terrazas, Klaus Solo and colleagues, with an educational olive from [employer]. Thrive Questionnaire Date Thrive assessed: 03/23/24 I am a: Patient What is your living situation today?: I have a steady place to live Within the past 12 months, did the food you bought not last and you didn't have the money to get more?: Never true Within the past 12 months, did you worry whether your food would run out before you got money to buy more?: Never true Do you have trouble paying for medicines?: No Do you have trouble getting transportation to medical appointments?: No Do you have trouble paying your heating and electricity bill?: No Do you have trouble taking care of your child, family member or friend?: No Do you have trouble with day-to-day activities such as bathing, preparing meals, shopping, managing finances, etc.?: No Are you currently unemployed and looking for a job?: No Are you interested in more education?: No Please select the resources that you would like help with: None Currently or been in a relationship where the following occur: No concerns reported THRIVE Score: 0 AUDIT C Alcohol Use Questionnaire (AUDIT-C) 1. How often do you have a drink containing alcohol?: 2-4 times a month 2. How many drinks containing alcohol do you have on a typical day when you are drinking?: 1 or 2 3. How often do you have six or more drinks on one occasion?: Never Total Score: 2 Score Reviewed/Action Taken: Yes COBY-7 AMB Questionnaire COBY-7 Date COBY - 7 assessed: 03/23/24 Feeling nervous, anxious, or on edge: 0 = Not at all Not being able to stop or control worryin = Not at all Worrying too much about different things: 0 = Not at all Trouble relaxin = Not at all Being so restless that it is hard to sit still: 0 = Not at all Becoming easily annoyed or irritable: 0 = Not at all Feeling afraid as if something awful might happen: 0 = Not at all Total COBY-7 score (0-4 normal; 5-9 mild; 10-14 moderate; 15-21 severe): 0 Source: Developed by Drs. Benjamín Hodge, Ghazal Terrazas, Klaus Solo and colleagues, with an educational olive from [employer]. COBY-7 Assessment Billing COBY-7 Assessment Tool: COBY-7 Assessment 46723 Review of Systems Const Details: Denies chills, Denies fatigue, Denies fever(s), Denies headache(s) and Denies weakness HEENT Denies change in vision, Denies dizziness, Denies headache(s), Denies hearing loss, Denies nasal congestion, Denies sinus pain, Denies sinus pressure and Denies sore throat Card Denies chest pain, Denies lightheadedness, Denies dyspnea and Denies other (palpitations) Resp Denies cough, Denies dyspnea and Denies wheezing GI Denies abdominal pain, Denies melena, Denies hematochezia, Denies change in bowel habits, Denies dyspepsia and Denies nausea Denies hematuria and Denies dysuria Musc Denies abnormal gait, Denies myalgias, Denies arthralgias, Denies numbness and Denies tingling Skin/Breast Denies rash, Denies unusual bruising and Denies wounds Neuro Denies abnormal gait, Denies dizziness, Denies headache(s), Denies memory loss, Denies numbness, Denies Sensory deficit (Neuro), Denies tingling and Denies weakness Psych Denies anxiety, Denies depression and Denies memory loss Endo Denies cold intolerance, Denies fatigue, Denies heat intolerance, Denies polydipsia and Denies polyuria Bryce/Lymph Denies easy bleeding and Denies easy bruising Aller/Immun Denies wheezing Physical exam (Primary Care) Vital Signs: Last Vital Signs Temp 97.4 F 03/23/24 08:15 Pulse 73 03/23/24 08:15 Resp 16 03/23/24 08:15 BP 128/82 03/23/24 08:15 Pulse Ox 98 03/23/24 08:15 Oxygen Delivery Method Room Air 03/23/24 08:15 BMI result Body Mass Index 45.0 Tobacco/Smoking Status: Tobacco use Status Tobacco use date assessed 03/23/24 03/23/24 08:14 Patient Tobacco Use Status Never used Tobacco 03/23/24 08:10 e-Cigarette/Vaping Use Never Used 03/23/24 08:10 PHQ-9: PHQ-9 Score PHQ-9: Total score 1 03/23/24 08:48 Depression Screening Interpretation: Negative Thrive Assessment: Date of Thrive Assessment Date Thrive assessed 03/23/24 03/23/24 08:22 Currently or been in a relationship where the following occur: No concerns reported Const Other: General: no acute distress, well developed, alert and awake Nutritional Appearance: well nourished Orientation/consciousness: patient oriented x3 HENMT Head: Yes normocephalic and Yes atraumatic Ears: hearing grossly normal bilaterally and TM's normal bilaterally General nose exam: Normal external nose present and Normal nares present Mouth: Normal oral and palatal mucosa present and moist mucous membranes Teeth and gingiva: dentition normal Throat: Yes oropharynx normal Eyes Pupils: Equal, round and reactive pupils present and Pupil accommodation reflex normal EOM: EOMs intact bilaterally Neck Neck: Yes normal visual inspection, Yes no lymphadenopathy and Yes trachea midline Thyroid: Thyroid normal Carotids: no bruits Lymphatic: no lymphadenopathy noted Chest Chest palpation & inspection: normal inspection of the chest Resp Effort & Inspection: normal respiratory effort Auscultation: clear to auscultation bilaterally Cardio Rate: regular rate Rhythm: regular rhythm Heart sounds: S1 normal heart sound present, S2 normal heart sound present, no gallops, no murmurs and no rubs Bruits: no abdominal aortic bruits and no carotid bruits GI Palpation (GI): No Abdominal aortic bruit present, Soft to palpation, nontender, No hepatosplenomegaly present and No Rebound tenderness present Auscultation: normal bowel sounds General: Yes no CVA tenderness Back/Spine/Pelvis Back: no CVA tenderness Cervical Spine: cervical ROM normal and No Cervical spine tenderness Thoracic/Lumbar Spine: thoraco-lumbar ROM normal, No pain with thoraco-lumbar ROM, No thoracic spinal tenderness and No lumbar spinal tenderness Skin General: warm and dry. Normal skin color. Normal skin turgor Lesions: no lesions Rashes: no rashes Trauma: no lacerations or abrasions Wounds: no wounds Nails: normal Neuro General: patient oriented x3, gait normal and CN's II-XI intact bilaterally Cranial nerves: Yes Equal, round and reactive pupils present Cognition (Neuro): normal cognition Gait exam (Neuro): Normal gait present Motor exam (neuro): 5/5 motor strength present throughout Sensory Exam: No Sensory deficit (Neuro) Deep tendon reflexes (DTR's): Right patellar reflex intensity grade: 2+ and Left patellar reflex intensity grade: 2+ Extrem General: Yes normal to inspection, No edema and No calf tenderness Psych Appearance: grossly normal Affect: normal affect Attitude: cooperative Thought process: Normal thought process present Results AMB Hemoglobin A1c AMB Hemoglobin A1c 6.3 % Last Edit by Tara Franklin MA on 03/23/24 09:06 Immunizations Boostrix Tdap 2.5 Lf unit-8 mcg-5 Lf/0.5 mL intramuscular syringe Performing Provider: Abimbola Mahmood CNP Performing Location: [facility] [place], [place] [facility] Administered by: Naima Mccloud RN on 03/23/24 08:47 Dose Route Admin Location Dispensed Lot Number Expiration Date NDC [employer] Analyst 0.5 mL IM Right Deltoid 0.5 mL [id number] 03/07/25 [id number] [employer] VIS Given Date VIS Provided VIS Publication Date 03/23/24 Single Vaccine 21 Eligibility Eligibility Date Funding Source Not [facility] Eligible 03/23/24 Private Results Reviewed Results Reviewed: Laboratory Last Values Hgb A1c (Clinic) 6.3 % (4.0-6.0) H 03/23/24 08:52 Coding Level of Care Code Est Pt Level 3 (67732) Est Pt Prev Care 40-64y(12325) Diagnoses Normal physical examination, routine Z00.00 Primary hypertension I10 Hypertension type: primary hypertension Vaccine counseling Z71.85 Morbid obesity with BMI of 45.0-49.9, adult E66.01; Z68.42 Eye exam, routine Z01.00 Vaccine for tetanus toxoid Z23 Prediabetes R73.03 Additional Codes COBY-7 Assessment Billing - COBY-7 Assessment Tool: COBY-7 Assessment 20285 ([id number]) Assessment & Plan Assessment & Plan (1) Normal physical examination, routine: Code(s): Z00.00 - Encounter for general adult medical examination without abnormal findings Category: Medical Plan: No significant functional limitations noted Continue current treatment regimen Healthy diet and routine exercise encouraged Follow-up in 3 months for hypertension and prediabetes or sooner with symptoms or concerns Verbalized understanding and agreed with the treatment plan (2) High blood pressure: Code(s): I10 - Essential (primary) hypertension Category: Medical Qualifiers: Hypertension type: primary hypertension Qualified Code(s): I10 - Essential (primary) hypertension Plan: Blood pressure today is 128/82, within goal of less than 140/90 Continue current treatment regimen Low-sodium diet encouraged Follow-up in 3 months Verbalized understanding and agreed with the plan (3) Vaccine counseling: Code(s): Z71.85 - Encounter for immunization safety counseling Category: Medical Plan: She has not been vaccinated for shingles. Instructed on importance of vaccination and encouraged to get the Shingrix vaccines. She may request the vaccines from her local pharmacy. Verbalized understanding and agreed with the plan (4) Morbid obesity with BMI of 45.0-49.9, adult: Code(s): E66.01 - Morbid (severe) obesity due to excess calories; Z68.42 - Body mass index [BMI] 45.0-49.9, adult Category: Medical Plan: She currently weighs 262 lb, BMI is 45.0 Declines referral to dietitian or weight management and notes that she will continue making an healthy lifestyle changes Healthy diet and routine exercise encouraged Follow-up with PCP as needed Verbalized understanding and agreed with the plan (5) Eye exam, routine: Code(s): Z01.00 - Encounter for examination of eyes and vision without abnormal findings Category: Medical Plan: Her last eye exam was 2 years ago. She will call her paper steamer to schedule an eye exam (6) Vaccine for tetanus toxoid: Code(s): Z23 - Encounter for immunization Category: Medical Plan: Last tetanus vaccine was more than 10 years ago Tdap vaccine administered today by our office nurse (7) Prediabetes: Code(s): R73.03 - Prediabetes Category: Medical Plan: Recent fasting glucose is 136. She has history of elevated fasting glucose A1c today is 6.3% Healthy diet and routine exercise encouraged. Advised to limit carbs such as rice, pasta, bread, potato Will recheck A1c in 3 months Verbalized understanding and agreed with the plan Orders: Orders TDaP Immunization Today Z23 - Encounter for immunization AMB Hemoglobin A1c Today Z13.9 - Encounter for screening, unspecified
[2024-03-23 08:15] VITALS: BP 128/82; PULSE 73; RESP 16; TEMP 36.3; O2SAT 98; BMI 45.0
== END 2024-03-23 08:55 | disposition home or self-care (01) ==
PROVIDERS: PCP Nurse Practitioner Family; Visit Provider Nurse Practitioner Family
DX: Z00.00 Encounter for general adult medical examination without abnormal findings (principal); I10 Essential (primary) hypertension; E66.813 Obesity, class 3; Z68.42 Body mass index [BMI] 45.0-49.9, adult; Z71.85 Encounter for immunization safety counseling; R73.03 Prediabetes

== ENCOUNTER → 2024-03-23 08:06 | Outpatient (BNVA) | payer OTHER, SELFPAY | PROVIDERS: PCP Nurse Practitioner Family; Visit Provider Nurse Practitioner Family | DX: Z00.00 Encounter for general adult medical examination without abnormal findings (principal); I10 Essential (primary) hypertension; E66.01 Morbid (severe) obesity due to excess calories; Z68.42 Body mass index [BMI] 45.0-49.9, adult; R73.03 Prediabetes; Z71.85 Encounter for immunization safety counseling; Z23 Encounter for immunization | CPT/HCPCS: 83036; 90471; 90715; 96127 ==

== ENCOUNTER 2024-10-12 09:55 | Outpatient (AMB) | payer OTHER, SELFPAY ==
--- NOTE | 2024-10-12 09:56 | A.OFFPC_ITS ---
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 She admits to making healthy dietary choices, including low-sodium and sugar. She has been walking regularly. She offers no complaints and denies acute symptoms at this time. 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 1. Little interest or pleasure in doing things: not at all 2. Feeling down, depressed, or hopeless: not at all 3. Trouble falling or staying asleep, or sleeping too much: not at all 4. Feeling tired or having little energy: not at all 5. Poor appetite or overeating: not at all 6. Feeling bad about yourself - or that you are a failure or have let yourself or your family down: not at all 7. Trouble concentrating on things, such as reading the newspaper or watching television: not at all 8. Moving or speaking so slowly that other people could have noticed. Or the opposite - being so fidgety or restless that you have been moving around a lot more than usual: not at all 9. Thoughts that you would be better off or of hurting yourself in some way: not at all Total score: 0 Source: Developed by Drs. Benjamín Hodge, Ghazal Terrazas, Klaus Solo and colleagues, with an educational olive from [employer]. Thrive Questionnaire Date Thrive assessed: 03/23/24 I am a: Patient What is your living situation today?: I have a steady place to live Within the past 12 months, did the food you bought not last and you didn't have the money to get more?: Never true Within the past 12 months, did you worry whether your food would run out before you got money to buy more?: Never true Do you have trouble paying for medicines?: No Do you have trouble getting transportation to medical appointments?: No Do you have trouble paying your heating and electricity bill?: No Do you have trouble taking care of your child, family member or friend?: No Do you have trouble with day-to-day activities such as bathing, preparing meals, shopping, managing finances, etc.?: No Are you currently unemployed and looking for a job?: No Are you interested in more education?: No Please select the resources that you would like help with: None Currently or been in a relationship where the following occur: No concerns reported THRIVE Score: 0 AUDIT C Alcohol Use Questionnaire (AUDIT-C) 1. How often do you have a drink containing alcohol?: 2-4 times a month 2. How many drinks containing alcohol do you have on a typical day when you are drinking?: 1 or 2 3. How often do you have six or more drinks on one occasion?: Never Total Score: 2 COBY-7 AMB Questionnaire COBY-7 Date COBY - 7 assessed: 03/23/24 Feeling nervous, anxious, or on edge: 0 = Not at all Not being able to stop or control worryin = Not at all Worrying too much about different things: 0 = Not at all Trouble relaxin = Not at all Being so restless that it is hard to sit still: 0 = Not at all Becoming easily annoyed or irritable: 0 = Not at all Feeling afraid as if something awful might happen: 0 = Not at all Total COBY-7 score (0-4 normal; 5-9 mild; 10-14 moderate; 15-21 severe): 0 Source: Developed by Drs. Benjamín Hodge, Ghazal Terrazas, Klaus Solo and colleagues, with an educational olive from [employer]. Review of Systems Const Details: Const Denies chills, Denies fatigue, Denies fever(s), Denies headache(s) and Denies weakness ENT Denies dizziness and Denies headache(s) Card Denies chest pain, Denies lightheadedness, Denies dyspnea and Denies other (Palpitations) Resp Denies cough, Denies dyspnea, Denies wheezing and Denies other ( shortness of breath) GI Denies abdominal pain, Denies melena, Denies hematochezia, Denies change in bowel habits, Denies dyspepsia and Denies nausea Denies hematuria and Denies dysuria Musc Denies abnormal gait, Denies myalgias, Denies arthralgias, Denies numbness and Denies tingling Skin/Breast Denies rash, Denies unusual bruising and Denies wounds Neuro Denies abnormal gait, Denies dizziness, Denies headache(s), Denies memory loss, Denies numbness, Denies Sensory deficit (Neuro), Denies tingling and Denies weakness Psych Denies anxiety, Denies depression, Denies memory loss Endo Denies cold intolerance, Denies fatigue, Denies heat intolerance, Denies polydipsia and Denies polyuria Aller/Immun Denies wheezing Physical exam (Primary Care) Tobacco/Smoking Status: Tobacco use Status Tobacco use date assessed 03/23/24 03/23/24 08:14 Patient Tobacco Use Status Never used Tobacco 03/23/24 08:10 e-Cigarette/Vaping Use Never Used 03/23/24 08:10 Thrive Assessment: Date of Thrive Assessment Date Thrive assessed 03/23/24 03/23/24 08:22 Currently or been in a relationship where the following occur: No concerns reported Const Other: General: no acute distress and well developed Nutritional Appearance: well nourished Orientation/consciousness: patient oriented x3 HENMT Head: Yes normocephalic and Yes atraumatic Eyes General: appearance normal, both eyes and all related structures Pupils: Equal, round and reactive pupils present EOM: EOMs intact bilaterally Resp Effort & Inspection: normal respiratory effort Auscultation: clear to auscultation bilaterally Cardio Rate: regular rate Rhythm: regular rhythm Heart sounds: S1 normal heart sound present, S2 normal heart sound present, no gallops, no murmurs and no rubs GI Palpation (GI): No Abdominal aortic bruit present, Soft to palpation, nontender, No hepatosplenomegaly present and No Rebound tenderness present Auscultation: normal bowel sounds General: Yes no CVA tenderness Back/Spine/Pelvis Back: no CVA tenderness Cervical Spine: cervical ROM normal and No Cervical spine tenderness Thoracic/Lumbar Spine: thoraco-lumbar ROM normal, No pain with thoraco-lumbar ROM, No thoracic spinal tenderness and No lumbar spinal tenderness Extrem General: Yes normal to inspection, No edema and No calf tenderness Skin General: warm and dry. Normal skin color. Normal skin turgor Neuro General: patient oriented x3, gait normal and no focal neuro deficit Cranial nerves: Yes Equal, round and reactive pupils present Cognition (Neuro): normal cognition Gait exam (Neuro): Normal gait present Sensory Exam: No Sensory deficit (Neuro) Psych Appearance: grossly normal Affect: normal affect Attitude: cooperative Thought process: Normal thought process present Results AMB Hemoglobin A1c AMB Hemoglobin A1c 6.1 % Last Edit by Tara Franklin MA on 10/12/24 10:24 Coding Level of Care Code Est Pt Level 4 (77503) Diagnoses Primary hypertension I10 Hypertension type: primary hypertension Prediabetes R73.03 Assessment & Plan Assessment & Plan (1) High blood pressure: Code(s): I10 - Essential (primary) hypertension Category: Medical Qualifiers: Hypertension type: primary hypertension Qualified Code(s): I10 - Essential (primary) hypertension Plan: Resting blood pressure is 116/80, within goal of less than 140/90. Low-sodium diet and routine exercise encouraged. Follow-up in 3 months or sooner with symptoms or concerns. Verbalized understanding and agreed with the treatment plan. (2) Prediabetes: Code(s): R73.03 - Prediabetes Category: Medical Plan: A1c today is 6.1%. Previous A1c was 6.3%. Routine exercise and low carb diet encouraged. Will recheck A1c in 6 months. Verbalized understanding and agreed with the plan. Orders: Orders AMB Hemoglobin A1c Today Z13.9 - Encounter for screening, unspecified
[2024-10-12 10:00] VITALS: BP 135/66; PULSE 66; RESP 16; TEMP 36.4; O2SAT 98; BMI 46.5
[2024-10-12 10:17] VITALS: BP 116/80
--- OUTSIDE RECORDS SUMMARY | 2024-10-12 11:04 | XMS_ITS | Encounter Summary ---
Author Organization [facility] Address [address] [place] [address] Care Team Providers Care Food Runner Name Role Phone None, None Primary Care Provider Carmen Gaines NP Primary Care Provider Encounter Details Date Type Department Care Team (Late st Contact Info) Description 12/14/2014 Scanned Document [address] [place] [address] [phone] Provider, Generic Social History Tobacco Use Types Packs/Day Years Used Date Smoking Tobacco: Never Assessed Comments Unknown Sex and Gender Information Value Date Recorded Sex Assigned at Not on file Legal Sex Female 11:36 AM EDT Gender Identity Not on file Sexual Orientation Not on file documented as of this encounter Plan of Treatment Not on file documented as of this encounter Visit Diagnoses Not on filedocumented in this encounter Care Teams Food Runner Relationship Specialty Start Date End Date None, None PCP - General 09/20/15 11/27/15 Carmen Little NP [address] [place] [address] PCP - General 11/28/15 documented as of this encounter
--- OUTSIDE RECORDS SUMMARY | 2024-10-12 11:04 | XMS_ITS | Encounter Summary ---
Author Organization [facility] Address [address] [place] [address] Care Team Providers Care Bond Analyst Name Role Phone None, None Primary Care Provider Carmen Gaines NP Primary Care Provider Encounter Details Date Type Department Care Team (Late st Contact Info) Description 12/10/2014 Scanned Document [address] [place] [address] [phone] Provider, Generic Social History Tobacco Use Types [...] on filedocumented in this encounter Care Teams Bond Analyst Relationship Specialty Start Date End Date None, None PCP - General 09/20/15 11/27/15 Carmen Little NP [address] [place] [address] PCP - General 11/28/15 documented as of this encounter
--- OUTSIDE RECORDS SUMMARY | 2024-10-12 11:04 | XMS_ITS | Data Portability ---
Author Organization [place] - [facility], [facility] Address [address] [place] [address] Assessment No assessment recorded. Plan of Treatment Reminders Order Date Submit Date Provider Last Modified By Organization Details Last Modified Time Details Appointments None recorded. Lab None recorded. Referral orthopedic surgeon referral 2021 mark Garrison MD, [address], [place], [address], 16:19:42 physical therapist referral 2021 [email or web address] [facility], [address], [place], [address], 13:01:24 Procedures None recorded. Surgeries None recorded. [facility], [address], [address], [place], [address], 18:03:25 Medication Orders cyclobenza arnaldo 10 mg tablet 2021 [email or web address] [facility] [id number] [employer], [address] [place], [id number], 18:20:04 Patient TargetsNo targets recorded. Patient Instructions Encounter Date Encounter Id Patient Instructions Last Modified By Organization Details Last Modified Time 01/22/2022 [id number] back care and preventing injuries: care instructions [email or web address] Not available 01/22/2022 17:34:37 getting back to normal after low back pain: care instructions [email or web address] Not available 01/22/2022 17:34:37 learning about relief for back pain Not available 01/22/2022 17:34:37 Pain Relief __X__ Take Acetaminophen (Tylenol) __X__ Take Ibuprofen (Advil) with full meal ____ Take Naproxen twice daily. __X__ Ice pack: 20 minute on , 20 minutes off, 20 minutes on 1 2 3 4 times a day. ____ Hot pack: times a day ____ Other: ____ Other: Care of Sprain, Fracture, Bruise: _X___ Keep injury elevated and at rest. ____ Keep cast/splint clean and dry. ____ Do circulation checks every 4 hours. ____ Use crutches for days. ____ Wear shea wrap for days. Re-wrap if too tight or too loose. ____ Wear splint/sling for days. _X___ Referral to Physical Therapy and to orthopedics given. ____ Other: ____ Other: Follow Up: Return to clinic as needed; Call to arrange follow up with Physical Therapy and with Orthopedist; If you have any concerns, please call [phone]. If an emergency develops and you cannot reach us, please contact the [facility] Emergency Department at [phone] [email or web address] Not available 01/22/2022 18:01:02 Reason for Referral Orthopedic Surgeon Referral for Low back pain Low back pain -- thank you Referring Physician: [facility], Encounter Date: 01/22/2022 Physical Therapist Referral for Low back pain Low back pain -- thank you Referring Physician: [facility], Encounter Date: 01/22/2022 Results Created Date Observation Date Name Description Value Unit Range Abnormal Flag Note LastModifiedBy Organization Detail LastModifiedTime 01/23/20 22 01/22/2022 XR, lumba r spine Exam: X-RAY, L-SPIN E 2-3 VIEW Date: 1:34 PM Indica tion: Low back pain Techni que: 4 views of the lumbar spine Compar wanda: None Findin gs: There is approx imatel y 5 mm of zoran listhe sis of L4 on L5. This could be second dipak to facet arthro nita at this level. No defini te spondy lolysi s is seen radiog raphic ally. There is narrow ing of the L3-L4, L4-L5 and L5-S1 disc spaces . Margin al osteop hytosi s throug hout the lumbar spine is presen t. No discre te fractu re is seen. Surgic al change s within the upper abdome n are visual ized. Impres vinayak: Degene rative change s of the lumbar spine. Zoran listhe sis of L4 on L5 could be second dipak to facet arthro nita. No defini te spondy lolysi s is seen radiog raphic ally. Dictat ed By: Erickson Riojas on Dictat ed On: 1:58 PM Signed By: Erickson Riojas on Signed On: 2:02 PM apolinar [facility] [place] [address], [place], [address], 01/23/2022 12:46:23 Result Notes None recorded. Procedures Surgical History Date Name Laterality Status Provider Name and Address Organization Details Recorded Time Hysterectomy completed Xochilt mccray CMA [facility] 01/22/2022 17:06:36 Imaging Results Imaging Date Name Status LastModified by Organiz ation Details LastModified Time 01/22/2022 XR, lumbar spine completed apolinar [facility] [place] [address], [place], [address], 01/23/2022 12:46:23 Procedure Notes None recorded. Medical Equipment None Reported. Allergies No known drug allergies Medications Name Sig Start Date Stop Date Status Note LastModified by Organization Details LastModified Time cyclobenzapri ne 10 mg tablet TAKE 1 TABLET 3 TIMES A DAY BY ORAL ROUTE. active Not Available Not Available No t Available methocarbamol 750 mg tablet TAKE 1 TABLET BY MOUTH NIGHTLY NEEDED FOR MUSCLE SPASMS. active Not Available Not Available No t Available hydrochloroth iazide 25 mg tablet TAKE 1 TABLET BY MOUTH EVERY DAY active Not Available Not Available No t Available naproxen 500 mg tablet TAKE 1 TABLET BY MOUTH TWICE A DAY WITH BREAKFAST AND DINNER active Not Available Not Available N ot Available Vitals Date Recorded Body height Body temperature Heart rate Oxygen saturation Oxygen saturation in Arterial blood by Pulse oximetry Respiratory rate Body mass index (BMI) Body weight Systolic blood pressure Diastolic blood pressure Systolic blood pressure Diastolic blood pressure Provider Name and Address Organization Details Last Updated DateTime 162.56 cm 97.9 [degF] 66 /min 97 % 97 % 16 /min 45.7 kg/m2 818475. 27 g 145 mm[Hg] 106 mm[Hg] 147 mm[Hg] 91 mm[Hg] Xochilt Sullivan CMA [facility] 17:09:25 Social History Question Answer Notes LastModified by Organizat ion Details LastModified Time Tobacco Smoking Status Never Smoker Xochilt Sullivan CMA null, [facility] 01/22/2022 17:06:26 What Is Your Level Of Alcohol Consumption? Occasional [email or web address] Information not available 01/22/2022 How Many Times Per Week Do You Consume Alcohol? 1-2 Times Per Week 1 Drink Every Few Weeks [email or web address] Information not available 01/22/2022 Do You Feel Safe At Home? Feel Safe [email or web address] Information not available 01/22/2022 What Was The Date Of Your Most Recent Tobacco Screening? 01/22/2022 Information not available 01/22/2022 Do You Use Any Illicit Or Recreational Drugs? No Information not available 01/22/2022 Do You Or Have You Ever Used Any Other Forms Of Tobacco Or Nicotine? No [email or web address] Information not available 01/22/2022 Sex: Unknown Functional Status None recorded. Mental Status None recorded. Family History Relationship Description Onset Age of this Age Resolved Age Notes LastModified by Organization Details LastModified Time Father History of hypertension [email or web address] Not available 17:05:52 Father Malignant neoplastic disease [email or web address] Not available 2021 17:05:58 Mother History of hypertension [email or web address] Not available 17:05:52 Mother Malignant neoplastic disease [email or web address] Not available 2021 17:05:58 Medical History Condition Response ANXIETY DISORDER N ASTHMA N EAR PROBLEMS N URINARY/BLADDER/KIDNEY PROBLEMS N DIABETES N HIGH CHOLESTEROL N DEPRESSION (INCLUDING POST ) N HAVE YOU BEEN HOSPITALIZED OR SEEN IN [facility] IN THE PAST YEAR ? N HYPERTENSION Y Gynecological History Statement/Question Response If Post Menopausal, Age at Menopause Obstetrics History GPAL:G 0 P 0 0 0 0 Past Encounters Encounter ID Performer Location Encounter Start Date Encounter Closed Date Diagnosis/Indication Diagnosis SNOMED-CT Code Diagnosis ICD10 Code Diagnosis Note [id number] [facility] [address] [place] [address] 01/22/2022 16:07:35 01/22/2022 18:48:28 Low back pain 996305373 M54.50 Impression :Degenerat yayo changes of the lumbar spine.Ante rolisthesi s of L4 on L5 could be secondary to facet arthropath y. No definitesp ondylolysi s is seen radiograph ically. Findings discussed with patient at time of visit; No red flags; Trial Flexeril -- sedation potential discussed; Refer Physical Therapy;Re miki Orthopedis t; P/R/I/C/E; Follow up as needed; Health Concerns Section Related Observation LastModified by Organization Detai ls LastModified Time None Recorded Concern Status LastModified by Organization Details LastModified Time None Recorded Advance Directives Directive None Recorded Payers Encounter Date Sequence Insurance Name Policy Number Policy Gomez Covered Member ID Gomez Member ID Guarantor Name 01/22/2022 1 [facility] [id number] Allegra Kline [id number] Allegra Kline Notes Date Note Type Note Provider Name and Address Organization Details Recorded Time 01/22/2022 text/html 56 year old fema jocelyn with history of chronic low back pain presents with increased low back pain x past 3 months. Patient is RV'ing in [place], traveled from [place]. 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 She was seen at an urgent care while in [place] at onset 3 months ago. She was prescribed a muscle relaxer with minimal relief. She is taking Ibuprofen and Tylenol with benefit.denies numbness, tingling or weakness of extremities;denies saddle paresthesia;denies fever;denies bladder or bowel dysfunction;denies any urinary tract complaints/concern s;denies rash;feels well otherwise, no other complaints or concerns; MOLLY MAGAÑA [address], [place], [address], [facility] 01/24/2022 22:39:35 OBGyn Episode No OBEpisode recorded.
--- OUTSIDE RECORDS SUMMARY | 2024-10-12 11:04 | XMS_ITS | Encounter Summary ---
Author Organization [facility] Address [address] [place] [address] Care Team Providers Care Platform Software Engineer Name Role Phone Carmen Little NP Primary Care Provider [phone] Encounter Details Date Type Department Care Team (Late st Contact Info) Description 03/28/2016 Scanned Document [facility] Bariatric Surgery [address] [place] [address] Rogelio Langley MD [address] [place] [address] Social History Tobacco Use Types Packs/Day Years Used Date Smoking Tobacco: Never Smokeless Tobacco: Never Alcohol Use Standard Drinks/Week Comments No 0 (1 standard drink = 0.6 oz pur e alcohol) 1 to 2 times a month Comments Unknown Sex and Gender Information Value Date Recorded Sex Assigned at Not on file Legal Sex Female 11:36 AM EDT Gender Identity Not on file Sexual Orientation Not on file documented as of this encounter Plan of Treatment Not on file documented as of this encounter Visit Diagnoses Not on filedocumented in this encounter Care Teams Platform Software Engineer Relationship Specialty Start Date End Date Carmen Little NP [address] [place] [address] PCP - General 11/28/15 documented as of this encounter
--- OUTSIDE RECORDS SUMMARY | 2024-10-12 11:04 | XMS_ITS | Data Portability ---
Author Organization [facility], [facility] Address [address] [place] [address] Assessment No assessment recorded. Plan of Treatment Reminders Order Date Submit Date Provider Last Modified By Organization Details Last Modified Time Details Appointments None recorded. Lab lipid panel, blood 2018 019 Not available 9 08:58:33 BMP, blood 2018 019 Not available 9 08:58:33 CMP, serum or plasma 2018 019 Not available 9 08:58:33 CMP, serum or plasma 2017 018 [email or web address] Not available 8 08:47:03 CBC 2017 018 [email or web address] Not available 8 08:47:04 lipid panel, blood 2017 018 [email or web address] Not available 8 08:47:04 Referral rheumatolog ist referral - Please contact patient for consutlatio n 2018 019 Mandeep Farias MD, [address], [address], 9 09:34:28 Procedures suture removal (PROC) 2017 018 ALINA [facility], [address] [place] [address], [id number], 8 14:33:50 Surgeries None recorded. Imaging None recorded. Medication Orders None recorded. Patient TargetsNo targets recorded. Patient Instructions Encounter Date Encounter Id Patient Instructions Last Modified By Organization Details Last Modified Time 10/17/2017 [id number] ? ? ?recommend health diet , regular exercise , routine eye and dental care Not available 10/17/2017 16:32:32 Discussed with and explained to the {{patient caregiv er patient and caregiver}} advance directives, including living will, power of workers compensation attorney and health care proxy. Standard forms for these advance directives were {{given to offered to but declined by}} same. Face to face discussion lasted for a duration of {{0* 16 17 18 19 20}} minutes. Not available 10/17/2017 16:32:32 10/20/2018 [id number] Sample Advanced Directives Form [facility] [email or web address] Not available 10/20/2018 09:45:44 ? ? 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 Not Available [facility] [address] [facility], [place], [address], 12/02/2017 08:01:41 12/03/19 18 12/02/2017 lipid panel , serum trigl serpl-mcnc 160 mg/dL <150 high Justa l: <150 mg/dl Borde rline -High : 150-1 99 mg/dl High: 200-4 99 mg/dl Very High: >500 mg/dl Refer ence range recom menda tions from the Natio nal Josette stero l Educa tion Progr am (NCEP ), 1. Not Available [facility] [address] [place], [address], 12/02/2017 08:01:41 12/03/19 18 12/02/2017 lipid panel , serum HDLC serpl-mcnc 56 mg/dL normal HDL level s are inver sely relat ed to the incid ent of coron dipak heart disea se (CHD) . HDL < 40 mg/dL Major risk facto r for CHD HDL > or = 60 mg/dL Low risk facto r for CHD Refer ence range recom menda tions from the Natio nal Josette stero l Educa tion Progr am (NCEP ), 1. Not Available [facility] [address] [place], [address], 12/02/2017 08:01:41 12/03/19 18 12/02/2017 lipid panel , serum LDLC serpl calc-mcnc 122 mg/dL <100 high Optim al: <100 mg/dl Near Optim al/Ab ove Optim al: 100-1 29 mg/dl Borde rline High: 130-1 59 mg/dl High: 160-1 89 mg/dl Very High: >/= 190 mg/dl Refer ence range recom menda tions from the Natio nal Josette stero l Educa tion Progr am (NCEP ), 1. This LDL resul t is based on the Jimena carcamo n. When the LDL is eleva antonio, the Direc t LDL test may provi de a more accur ate risk strat ifica tion. Upon reque st a Direc t LDL can be perfo rmed on this speci men withi n 3 days of colle ction . Not Available [facility] [address] [place], [address], 12/02/2017 08:01:41 12/03/19 18 12/02/2017 CMP, serum or plasm a glucose serpl-mcnc 93 mg/dL 70-110 normal Not Available [facility] [address] [place], [address], 12/02/2017 08:01:40 12/03/19 18 12/02/2017 CMP, serum or plasm a BUN serpl-mcnc 21 mg/dL 7-18 high Not Available [facility] [address] [place], [address], 12/02/2017 08:01:40 12/03/19 18 12/02/2017 CMP, serum or plasm a creat serpl-mcnc 0.9 mg/dL 0.6-1. 0 normal Not Available [facility] [address] [place], [address], 12/02/2017 08:01:40 12/03/19 18 12/02/2017 CMP, serum or plasm a GFR/bsa pred.non black serpl MDRD-arvrat > 60 mL/mi n >60 normal If patie nt is Afric an Ameri can multi ply by 1.21. Not Available [facility] [address] [place], [address], 12/02/2017 08:01:40 12/03/19 18 12/02/2017 CMP, serum or plasm a creat cL/bsa.pred serpl C-g-arvrat Test not perfor med mL/mi n normal Weigh t pelon ng, canno t calcu late CRCL Not Available [facility] [address] [place], [address], 12/02/2017 08:01:40 12/03/19 18 12/02/2017 CMP, serum or plasm a sodium serpl-scnc 143 mmol/ L 136-14 5 normal Not Available [facility] [address] [place], [address], 12/02/2017 08:01:40 12/03/19 18 12/02/2017 CMP, serum or plasm a potassium serpl-scnc 4.4 mmol/ L 3.5-5. 1 normal Not Available [facility] [address] [place], [address], 12/02/2017 08:01:40 12/03/19 18 12/02/2017 CMP, serum or plasm a chloride serpl-scnc 107 mmol/ L 98-110 normal Not Available [facility] [address] [place], [address], 12/02/2017 08:01:40 12/03/19 18 12/02/2017 CMP, serum or plasm a CO2 serpl-scnc 27 mmol/ L 21-32 normal Not Available [facility] [address] [place], [address], 12/02/2017 08:01:40 12/03/19 18 12/02/2017 CMP, serum or plasm a calcium serpl-mcnc 9.0 mg/dL 8.5-10 .1 normal Not Available [facility] [address] [place], [address], 12/02/2017 08:01:40 12/03/19 18 12/02/2017 CMP, serum or plasm a prot serpl-mcnc 7.0 g/dL 6.4-8. 0 normal Not Available [facility] [address] [place], [address], 12/02/2017 08:01:40 12/03/19 18 12/02/2017 CMP, serum or plasm a albumin serpl bcp-mcnc 3.6 g/dL 3.4-5. 0 normal Not Available [facility] [address] [place], [address], 12/02/2017 08:01:40 12/03/19 18 12/02/2017 CMP, serum or plasm a bilirub serpl-mcnc 0.6 mg/dL 0.2-1. 0 normal Not Available [facility] [address] [place], [address], 12/02/2017 08:01:40 12/03/19 18 12/02/2017 CMP, serum or plasm a AST serpl W P-5'-P-ccnc 24 U/L 15-37 normal Not Available [facility] [address] [place], [address], 12/02/2017 08:01:40 12/03/19 18 12/02/2017 CMP, serum or plasm a ALT serpl W P-5'-P-ccnc 31 U/L 12-78 normal Not Available [facility] [address] [place], [address], 12/02/2017 08:01:40 12/03/19 18 12/02/2017 CMP, serum or plasm a ALP serpl-ccnc 75 U/L 45-117 normal Not Available [facility] [address] [place], [address], 12/02/2017 08:01:40 12/03/19 18 12/02/2017 CBC WBC NRBC cor # bld auto 7.50 10-3/ uL 3.6-11 .1 normal Not Available [facility] [address] [place], [address], 12/02/2017 08:02:59 12/03/19 18 12/02/2017 CBC RBC # bld auto 4.98 10-6/ uL 3.69-5 .16 normal Not Available [facility] [address] [place], [address], 12/02/2017 08:02:59 12/03/19 18 12/02/2017 CBC HGB bld-mcnc 15.0 g/dL 11.6-1 5.2 normal Not Available [facility] [address] [place], [address], 12/02/2017 08:02:59 12/03/19 18 12/02/2017 CBC HCT vfr bld auto 42.6 % 34.4-4 5.7 normal Not Available [facility] [address] [place], [address], 12/02/2017 08:02:59 12/03/19 18 12/02/2017 CBC MCV RBC auto 85.5 fL 81.1-9 8.7 normal Not Available [facility] [address] [place], [address], 12/02/2017 08:02:59 12/03/19 18 12/02/2017 CBC MCH RBC qn auto 30.1 pg 26.8-3 3.2 normal Not Available [facility] [address] [place], [address], 12/02/2017 08:02:59 12/03/19 18 12/02/2017 CBC MCHC RBC auto-mcnc 35.2 g/dL 32.3-3 5.6 normal Not Available [facility] [address] [place], [address], 12/02/2017 08:02:59 12/03/19 18 12/02/2017 CBC RDW RBC auto-RTO 12.1 % 10.9-1 5.8 normal Not Available [facility] [address] [place], [address], 12/02/2017 08:02:59 12/03/19 18 12/02/2017 CBC platelet # bld auto 231 10-3/ uL 122-40 0 normal Not Available [facility] [address] [place], [address], 12/02/2017 08:02:59 12/03/19 18 12/02/2017 CBC pmv bld auto 8.1 fL 7.1-10 .8 normal Not Available [facility] [address] [place], [address], 12/02/2017 08:02:59 05/09/20 18 05/09/2018 gilbetro orosco (PROC ) Suture Removal Nose Not Available [facility] [address] [place], [address], 05/09/2018 13:39:40 07/24/19 19 07/24/2018 BMP, serum or plasm a glucose serpl-mcnc 97 mg/dL 70-110 normal Not Available [facility] [address] [place], [address], 07/24/2018 22:39:19 07/24/19 19 07/24/2018 BMP, serum or plasm a BUN serpl-mcnc 26 mg/dL 7-18 high Not Available [facility] [address] [place], [address], 07/24/2018 22:39:19 07/24/1907/24/2018 BMP, serum or plasm a creat serpl-mcnc 1.1 mg/dL 0.6-1. 0 high Not Available [facility] [address] [place], [address], 07/24/2018 22:39:19 07/24/1907/24/2018 BMP, serum or plasm a GFR/bsa pred.non black serpl MDRD-arvrat 55 mL/mi n >60 low If patie nt is Afric an Ameri can multi ply by 1.21. Not Available [facility] [address] [place], [address], 07/24/2018 22:39:19 07/24/1907/24/2018 BMP, serum or plasm a creat cL/bsa.pred serpl C-g-arvrat 50 mL/mi n normal Not Available [facility] [address] [place], [address], 07/24/2018 22:39:19 07/24/1907/24/2018 BMP, serum or plasm a sodium serpl-scnc 142 mmol/ L 136-14 5 normal Not Available [facility] [address] [place], [address], 07/24/2018 22:39:19 07/24/1907/24/2018 BMP, serum or plasm a potassium serpl-scnc 3.9 mmol/ L 3.5-5. 1 normal Not Available [facility] [address] [place], [address], 07/24/2018 22:39:19 07/24/1907/24/2018 BMP, serum or plasm a chloride serpl-scnc 108 mmol/ L 98-110 normal Not Available [facility] [address] [place], [address], 07/24/2018 22:39:19 07/24/1907/24/2018 BMP, serum or plasm a CO2 serpl-scnc 26 mmol/ L 21-32 normal Not Available [facility] [address] [place], [address], 07/24/2018 22:39:19 07/24/1907/24/2018 BMP, serum or plasm a calcium serpl-mcnc 9.8 mg/dL 8.5-10 .1 normal Not Available [facility] [address] [place], [address], 07/24/2018 22:39:19 07/24/1907/24/2018 uric acid, serum or plasm a urate serpl-mcnc 8.5 mg/dL 2.6-6. 0 high Not Available [facility] [address] [place], [address], 07/24/2018 22:39:19 07/24/1907/24/2018 C-dalia ctive prote in, quant itati ve, serum or plasm a CRP serpl-mcnc 1.6 1 0.0-0. 3 high Not Available [facility] [address] [place], [address], 07/24/2018 22:39:19 07/24/19 19 07/24/2018 CBC w/ auto diff WBC NRBC cor # bld auto 10.30 10-3/ uL 3.6-11 .1 normal Not Available [facility] [address] [place], [address], 07/25/2018 00:33:38 07/24/1907/24/2018 CBC w/ auto diff RBC # bld auto 4.92 10-6/ uL 3.69-5 .16 normal Not Available [facility] [address] [place], [address], 07/25/2018 00:33:38 07/24/19 19 07/24/2018 CBC w/ auto diff HGB bld-mcnc 14.7 g/dL 11.6-1 5.2 normal Not Available [facility] [address] [place], [address], 07/25/2018 00:33:38 07/24/19 19 07/24/2018 CBC w/ auto diff HCT vfr bld auto 41.2 % 34.4-4 5.7 normal Not Available [facility] [address] [place], [address], 07/25/2018 00:33:38 07/24/1907/24/2018 CBC w/ auto diff MCV RBC auto 83.8 fL 81.1-9 8.7 normal Not Available [facility] [address] [place], [address], 07/25/2018 00:33:38 07/24/19 19 07/24/2018 CBC w/ auto diff MCH RBC qn auto 29.8 pg 26.8-3 3.2 normal Not Available [facility] [address] [place], [address], 07/25/2018 00:33:38 07/24/19 19 07/24/2018 CBC w/ auto diff MCHC RBC auto-mcnc 35.6 g/dL 32.3-3 5.6 normal Not Available [facility] [address] [place], [address], 07/25/2018 00:33:38 07/24/19 19 07/24/2018 CBC w/ auto diff RDW RBC auto-RTO 12.5 % 10.9-1 5.8 normal Not Available [facility] [address] [place], [address], 07/25/2018 00:33:38 07/24/19 19 07/24/2018 CBC w/ auto diff platelet # bld auto 216 10-3/ uL 122-40 0 normal Not Available [facility] [address] [place], [address], 07/25/2018 00:33:38 07/24/1907/24/2018 CBC w/ auto diff pmv bld auto 9.0 fL 7.1-10 .8 normal Not Available [facility] [address] [place], [address], 07/25/2018 00:33:38 07/24/1907/24/2018 CBC w/ auto diff neutrophils nfr bld auto 72.2 % delta Delta : 48.7 on 11/26-0 636 Not Available [facility] [address] [place], [address], 07/25/2018 00:33:38 07/24/19 19 07/24/2018 CBC w/ auto diff lymphocytes nfr bld auto 17.9 % delta Delta : 39.9 on 11/26-0 636 Not Available [facility] [address] [place], [address], 07/25/2018 00:33:38 07/24/1907/24/2018 CBC w/ auto diff monocytes nfr bld auto 5.6 % normal Not Available [facility] [address] [place], [address], 07/25/2018 00:33:38 07/24/1907/24/2018 CBC w/ auto diff eosinophil nfr bld auto 2.7 % normal Not Available [facility] [address] [place], [address], 07/25/2018 00:33:38 07/24/1907/24/2018 CBC w/ auto diff basophils nfr bld auto 1.6 % normal Not Available [facility] [address] [place], [address], 07/25/2018 00:33:38 07/24/1907/24/2018 CBC w/ auto diff neutrophils # bld auto 7.5 10-3/ uL 2.0-7. 5 normal Not Available [facility] [address] [place], [address], 07/25/2018 00:33:38 07/24/1907/24/2018 CBC w/ auto diff lymphocytes # bld auto 1.8 10-3/ uL 1.5-4. 5 normal Not Available [facility] [address] [place], [address], 07/25/2018 00:33:38 07/24/1907/24/2018 CBC w/ auto diff monocytes # bld auto 0.6 10-3/ uL 0.2-1. 0 normal Not Available [facility] [address] [place], [address], 07/25/2018 00:33:38 07/24/19 19 07/24/2018 CBC w/ auto diff eosinophil # bld auto 0.3 10-3/ uL 0.0-0. 7 normal Not Available [facility] [address] [place], [address], 07/25/2018 00:33:38 07/24/19 19 07/24/2018 CBC w/ auto diff basophils # bld auto 0.2 10-3/ uL 0.0-0. 1 high Not Available [facility] [address] [place], [address], 07/25/2018 00:33:38 07/24/1907/24/2018 CBC w/ auto diff NRBC # bld auto 0.0 1 0.0-0. 3 normal Not Available [facility] [address] [place], [address], 07/25/2018 00:33:38 07/24/19 19 07/24/2018 ESR (eryt hrocy te sedim entat ion rate) , blood ESR bld qn 18 mm 0-30 normal Not Available [facility] [address] [place], [address], 07/25/2018 00:33:39 12/03/19 19 12/02/2018 CMP, serum or plasm a glucose serpl-mcnc 89 mg/dL 70-110 normal Not Available [facility] [address] [place], [address], 12/02/2018 09:43:05 12/03/19 19 12/02/2018 CMP, serum or plasm a BUN serpl-mcnc 27 mg/dL 7-18 high Not Available [facility] [address] [place], [address], 12/02/2018 09:43:05 12/03/19 19 12/02/2018 CMP, serum or plasm a creat serpl-mcnc 1.1 mg/dL 0.6-1. 0 high Not Available [facility] [address] [place], [address], 12/02/2018 09:43:05 12/03/19 19 12/02/2018 CMP, serum or plasm a GFR/bsa pred.non black serpl MDRD-arvrat 55 mL/mi n >60 low If patie nt is Afric an Ameri can multi ply by 1.21. Not Available [facility] [address] [place], [address], 12/02/2018 09:43:05 12/03/1912/02/2018 CMP, serum or plasm a creat cL/bsa.pred serpl C-g-arvrat Test not perfor med mL/mi n normal Weigh t pelon ng, canno t calcu late CRCL Not Available [facility] [address] [place], [address], 12/02/2018 09:43:05 12/03/1912/02/2018 CMP, serum or plasm a sodium serpl-scnc 142 mmol/ L 136-14 5 normal Not Available [facility] [address] [place], [address], 12/02/2018 09:43:05 12/03/1912/02/2018 CMP, serum or plasm a potassium serpl-scnc 4.6 mmol/ L 3.5-5. 1 normal Not Available [facility] [address] [place], [address], 12/02/2018 09:43:05 12/03/1912/02/2018 CMP, serum or plasm a chloride serpl-scnc 108 mmol/ L 98-110 normal Not Available [facility] [address] [place], [address], 12/02/2018 09:43:05 12/03/1912/02/2018 CMP, serum or plasm a CO2 serpl-scnc 29 mmol/ L 21-32 normal Not Available [facility] [address] [place], [address], 12/02/2018 09:43:05 12/03/19 19 12/02/2018 CMP, serum or plasm a calcium serpl-mcnc 9.5 mg/dL 8.5-10 .1 normal Not Available [facility] [address] [place], [address], 12/02/2018 09:43:05 12/03/1912/02/2018 CMP, serum or plasm a prot serpl-mcnc 6.8 g/dL 6.4-8. 0 normal Not Available [facility] [address] [place], [address], 12/02/2018 09:43:05 12/03/1912/02/2018 CMP, serum or plasm a albumin serpl bcp-mcnc 3.8 g/dL 3.4-5. 0 normal Not Available [facility] [address] [place], [address], 12/02/2018 09:43:05 12/03/1912/02/2018 CMP, serum or plasm a bilirub serpl-mcnc 0.4 mg/dL 0.2-1. 0 normal Not Available [facility] [address] [place], [address], 12/02/2018 09:43:05 12/03/1912/02/2018 CMP, serum or plasm a AST serpl W P-5'-P-ccnc 18 U/L 15-37 normal Not Available [facility] [address] [place], [address], 12/02/2018 09:43:05 12/03/19 19 12/02/2018 CMP, serum or plasm a ALT serpl W P-5'-P-ccnc 23 U/L 12-78 normal Not Available [facility] [address] [place], [address], 12/02/2018 09:43:05 12/03/1912/02/2018 CMP, serum or plasm a ALP serpl-ccnc 77 U/L 45-117 normal Not Available [facility] [address] [place], [address], 12/02/2018 09:43:05 12/03/1912/02/2018 lipid panel , serum cholest serpl-mcnc 209 mg/dL <200 high Ginna able: <200 mg/dl Borde rline -High : 200-2 39 mg/dl High: >/= 240 mg/dl Refer ence range recom menda tions from the Natio nal Josette stero l Educa tion Progr am (NCEP ), 1. Not Available [facility] [address] [place], [address], 12/02/2018 09:43:06 12/03/1912/02/2018 lipid panel , serum trigl serpl-mcnc 94 mg/dL <150 normal Justa l: <150 mg/dl Borde rline -High : 150-1 99 mg/dl High: 200-4 99 mg/dl Very High: >500 mg/dl Refer ence range recom menda tions from the Natio nal Josette stero l Educa tion Progr am (NCEP ), 1. Not Available [facility] [address] [place], [address], 12/02/2018 09:43:06 12/03/1912/02/2018 lipid panel , serum HDLC serpl-mcnc 58 mg/dL normal HDL level s are inver sely relat ed to the incid ent of coron dipak heart disea se (CHD) . HDL < 40 mg/dL Major risk facto r for CHD HDL > or = 60 mg/dL Low risk facto r for CHD Refer ence range recom menda tions from the Natio nal Josette stero l Educa tion Progr am (NCEP ), 1. Not Available [facility] [address] [place], [address], 12/02/2018 09:43:06 12/03/19 19 12/02/2018 lipid panel , serum LDLC serpl calc-mcnc 132 mg/dL <100 high Optim al: <100 mg/dl Near Optim al/Ab ove Optim al: 100-1 29 mg/dl Borde rline High: 130-1 59 mg/dl High: 160-1 89 mg/dl Very High: >/= 190 mg/dl Refer ence range recom menda tions from the Natio nal Josette stero l Educa tion Progr am (NCEP ), 1. This LDL resul t is based on the Jimena coolu latio n. When the LDL is eleva antonio, the Direc t LDL test may provi de a more accur ate risk strat ifica tion. Upon reque st a Direc t LDL can be perfo rmed on this speci men withi n 3 days of colle ction . Not Available [facility] [address] [place], [address], 12/02/2018 09:43:06 Result Notes None recorded. 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 Procedures Surgical History Date Name Laterality Status Provider Name and Address Organization Details Recorded Time 10/21/19 19 Medication Review/Reconcili ation completed Jewles Dumont [facility] 10/20/2018 09:38:59 10/21/19 19 Pain Assessment completed Jewels Dumont [facility] 10/20/2018 09:33:54 05/29/20 18 Medication Review/Reconcili ation completed Alta [facility] 05/29/2018 16:25:45 05/09/20 18 Removal of Sutures Placed By Another Physician completed Alta [facility] 05/09/2018 13:37:16 05/09/20 18 Medication Review/Reconcili ation completed Alta [facility] 05/09/2018 13:36:59 04/10/20 17 Colonoscopy completed Alta [facility] 10/17/2017 16:33:27 06/10/19 16 Gastric Bypass completed [facility]ta [facility] 08/27/2017 16:48:22 06/10/19 16 Scr mammo bi incl cad completed [facility]ta [facility] 10/17/2017 16:33:41 06/10/19 03 Partial Hysterectomy completed [facility] 08/27/2017 16:47:20 Imaging Results None recorded. Procedure Notes None recorded. Medical Equipment None Reported. Allergies Allergen ID Allergen Name Allergen Category Reaction Reaction Severity Criticality Documentation Date Start Date Code Code System Note Provider Name and Address Organization Details Recorded Time 2270 Augmentin medicatio n angioedem a severe Not available 05/14/2018 75054 2 RxNorm Selina Cervantes, [address], [phone] [place] [address] 8 13:27:59 Medications Name Sig Start Date Stop Date Status Note LastModified by Organization Details LastModified Time Vitamin C once daily 05/09 completed Not Available Not Available Not Available multivitamin once daily active Not Available Not Available No t Available Vitals Date Recorded Body height Heart rate Body mass index (BMI) Body weight Oxygen saturation Oxygen saturation in Arterial blood by Pulse oximetry Systolic blood pressure Diastolic blood pressure Provider Name and Address Organization Details Last Updated DateTime 8 162.56 cm 61 /min 43.3 kg/m2 217620. 28 g 98 % 98 % 120 mm[Hg] 87 mm[Hg] [facility] 8 16:50:31 Date Recorded Body height Oxygen saturation Oxygen saturation in Arterial blood by Pulse oximetry Body mass index (BMI) Body weight Heart rate Systolic blood pressure Diastolic blood pressure Provider Name and Address Organization Details Last Updated DateTime 8 162.56 cm 99 % 99 % 42.6 kg/m2 023834. 91 g 70 /min 130 mm[Hg] 80 mm[Hg] [facility] 8 16:37:15 Date Recorded Body height Provider Name an d Address Organization Details Last Updated DateTime 05/09/2018 162.56 cm Jewels [facility] 05/09/2018 13:20:06 Date Recorded Body mass index (BMI) Body weight Heart rate Systolic blood pressure Diastolic blood pressure Provider Name and Address Organization Details Last Updated DateTime 05/09/2018 43.9 kg/m2 913272.6 5 g 78 /min 129 mm[Hg] 81 mm[Hg] Radha [facility] 8 13:36:47 Date Recorded Body height Body mass index (BMI) Body weight Heart rate Oxygen saturation Oxygen saturation in Arterial blood by Pulse oximetry Systolic blood pressure Diastolic blood pressure Provider Name and Address Organization Details Last Updated DateTime 8 162.56 cm 43.9 kg/m2 344346. 65 g 80 /min 99 % 99 % 132 mm[Hg] 80 mm[Hg] [facility] 8 16:25:56 Date Recorded Body height Oxygen saturation Oxygen saturation in Arterial blood by Pulse oximetry Heart rate Body mass index (BMI) Body weight Systolic blood pressure Diastolic blood pressure Provider Name and Address Organization Details Last Updated DateTime 9 162.56 cm 98 % 98 % 60 /min 43.9 kg/m2 130168. 65 g 118 mm[Hg] 82 mm[Hg] Jewels [facility] 9 09:37:04 Social History Question Answer Notes LastModified by Organizat ion Details LastModified Time Tobacco Smoking Status Never Smoker Not Available [employer] 04/12/2020 03:10:53 Do You Have An Advance Directive? Yes [id number] Information not available 04/12/2020 What Is Your Level Of Caffeine Consumption? Occasional [id number] Information not available 04/12/2020 Are You Currently Employed? Yes [id number] Information not available 04/12/2020 Which Illicit Or Recreational Drugs Have You Used? None [id number] Information not available 04/12/2020 Education 4 Year College Informatio n not available 08/27/2017 What Is Your Occupation? [place] [employer] [id number] Information not available 04/12/2020 Hard Of Hearing Or Deaf In One Or Both Ears? No Information not available 08/27/2017 Legally Blind In One Or Both Eyes? No Information not available 08/27/2017 Live Alone Or With Others? With Others Information not available 08/27/2017 What Was The Date Of Your Most Recent Tobacco Screening? 10/20/2018 [id number] Information not available 04/12/2020 How Many Children Do You Have? 0 [id number] Information not available 04/12/2020 Sex: Unknown Functional Status Question Answer Note LastModified by Organizat ion Details LastModified Time Are you able to walk? YESWOREST [id number] Information not available 04/12/2020 Are you able to care for yourself? Yes [id number] Information not available 04/12/2020 What is your exercise level? Occasional walks with spouse 3 x per week [id number] Information not available 04/12/2020 Mental Status None recorded. Family History Relationship Description Onset Age of this Age Resolved Age Notes LastModified by Organization Details LastModified Time Mother History of cancer of gall bladder Not available 16:45:45 Father Malignant neoplasm of prostate Not available 2017 16:45:54 Sister Hypertensive disorder Not available 2017 16:46:08 Sister Type 1 diabetes mellitus Not available 2017 16:46:13 Medical History No medical history recorded. Gynecological HistoryNo gynecological history recorded. Obstetrics History GPAL:G 0 P 0 0 0 0 Past Encounters Encounter ID Performer Location Encounter Start Date Encounter Closed Date Diagnosis/Indication Diagnosis SNOMED-CT Code Diagnosis ICD10 Code Diagnosis Note [id number] Robinson WuDO delilah [address] [address] 08/27/2017 16:22:59 08/27/2017 17:13:08 Body mass index 40+ - severely obese 314729296 Z68.41 BMI 43.3 Elevated blood-pressure reading without diagnosis of hypertension 152193710 R03.0 Adult heal th examination 441387956 Z00.00 [id number] Robinson W[address]el[address]ah [address] [address] 10/17/2017 16:02:09 10/17/2017 16:54:22 Adult health examination 291089387 Z00.00 The patient was advised to continue a healthy diet and exercise regularly. She also was advised to: {{followup with a gastroente rologist for a colonoscop y have a dermatolog y skin screening have a conference organizer evaluation have a mammogram *}} {{followup with a gastroente rologist for a colonoscop y have a dermatolog y skin screening have a conference organizer evaluation have a mammogram }} {{followup with a gastroente rologist for a colonoscop y have a dermatolog y skin screening have a conference organizer evaluation have a mammogram} }. Labs will be sent to evaluate blood count, renal function lipids and vitamin D. Depression screening 171 936839 Z13.89 Body mass index 40+ - severely obese 677615714 Z68.41 BMI 42.6 [id number] Robinson NeshaJhony Jarochodavid DO [address] [address] 05/09/2018 13:12:19 05/09/2018 13:55:32 Facial laceration 097551796 S01.81XA 5 sutures removed from nose. wound edges well approximat ed and healing normally. Steri strips placed to assist with furhter wound healing. [id number] [address] Lau [address] [address] 05/29/2018 16:21:05 05/29/2018 16:57:56 Eruption 422860249 R21 there is erythema but getting better. The wound is well approximat ed and healing well. [id number] Robinson Lau, DO [address] [address] 10/20/2018 09:33:20 10/20/2018 10:22:11 Adult health examination 175805417 Z00.00 The patient was advised to continue a healthy diet and exercise regularly. She also was advised to: {{followup with a gastroente rologist for a colonoscop y have a dermatolog y skin screening have a conference organizer evaluation have a mammogram *}} {{continue wt loss program. # followup with a gastroente rologist for a colonoscop y have a dermatolog y skin screening have a conference organizer evaluation have a mammogram }} {{followup with a gastroente rologist for a colonoscop y have a dermatolog y skin screening have a conference organizer evaluation have a mammogram} }. Labs will be sent to evaluate blood count, renal function lipids and vitamin D. Depression screening 171 948318 Z13.89 Administra tion of pneumococcal vaccine 95854263 Z23 Screening for malignant neoplasm of urinary system 666349943 Z12.6 Hyperuricemia 46576166 E 79.0 Had gout like sx in R ankle which has now restarted. UA was 8.5 and crp was elevated during the bout. Health Concerns Section Related Observation LastModified by Organization Detai ls LastModified Time None Recorded Concern Status LastModified by Organization Details LastModified Time None Recorded Advance Directives Directive Y: Payers Encounter Date Sequence Insurance Name Policy Number Policy Gomez Covered Member ID Gomez Member ID Guarantor Name 08/27/2017 1 [place]) [id number] Jodine Tionesta [id number] Jodine Tionesta 10/17/2017 1 [place] [id number] Jodine Tionesta [id number] 540 Jodine Tionesta 05/09/2018 1 [place]) [id number] Jodine Tionesta [id number] 540 Jodine Tionesta 05/29/2018 1 [place]) [id number] Jodine Tionesta [id number] 540 Jodine Tionesta 10/20/2018 1 [place] BCBS (O) [id number] Allegra Kline [id number] 540 Allegra Kline Notes Date Note Type Note Provider Name and Address Organization Details Recorded Time 08/27/2017 text/html patient is here for a NPOV. patient has no complaints. Robinson Lau DO [address] [place] [address], [id number] 08/27/2017 17:08:33 10/17/2017 text/html Annual WellnessReported bypatient.Diet and Nutrition:healthy diet Fracture Risk:no history of fractures Physical Activity:exercises on a regular basis; walking Additional Lifestyle Factors:no tobacco use; drinks alcohol (mild-moderate) Depression Risk:never feels sad, empty, or tearful; no loss of interest in activities; no significant changes in weight; no sleep disturbances or insomnia; no agitation; no loss of energy; no feelings of worthlessness or guilt; no thoughts of suicide; no history of depression; no history of mood disorders Hearing:no loss of hearing Vision:no vision problems The patient is accompanied by {{no one* their spouse a family member a non-family caregiver a friend}}. Since their last office visit, the patient {{was seen in the ED/Walk-In was seen in the hospital was not seen in an inpatient setting*}}. The patient {{has has not*}} received the Flu Vaccine during the most recent flu season(March-June ). MEDICATION REVIEW: The patient is not currently on any medications or supplements. DEPRESSION: The patient was screened utilizing the PHQ-9 Screening Tool, and results have been entered into the note today. Their physical and/or emotional health {{has has not*}} limited their social activity with friends, family or neighbors. Robinson Lau [address], [address], [facility] 10/17/2017 16:52:01 05/09/2018 text/html PT IS HERE FOR A SUTURE REMOVAL ON HER NOSE. Robinson Lau DO [address] [place] [address], [phone], [facility] 05/09/2018 13:55:46 05/29/2018 text/html patient is here for f/u to suture removal. patient questioning one area tht is not healing as fast as the rest. Robinson Lau DO [address] [place] [address], [phone], [facility] 05/29/2018 16:38:06 10/20/2018 text/html Annual WellnessReported bypatient.Diet and Nutrition:healthy diet Physical Activity:does not exercise on a regular basis Additional Lifestyle Factors:no tobacco use; drinks alcohol (mild-moderate) Depression Risk:never feels sad, empty, or tearful; no loss of interest in activities; no significant changes in weight; no sleep disturbances or insomnia; no agitation; no loss of energy; no feelings of worthlessness or guilt; no thoughts of suicide; no history of depression; no history of mood disorders Hearing:no loss of hearing Vision:no vision problems The patient is accompanied by {{no one* their spouse a family member a non-family caregiver a friend}}. Since their last office visit, the patient {{was seen in the ED/Walk-In was seen in the hospital was not seen in an inpatient setting*}}. The patient {{has has not*}} received the Flu Vaccine during the most recent flu season(March-June ). MEDICATION REVIEW: See Procedure Documentation DEPRESSION: The patient was screened utilizing the PHQ-9 Screening Tool, and results have been entered into the note today. Their physical and/or emotional health {{has has not*}} limited their social activity with friends, family or neighbors. Robinson Lau DO [address] [place] [address], [phone], [facility] 10/20/2018 09:58:06 OBGyn Episode No OBEpisode recorded.
--- OUTSIDE RECORDS SUMMARY | 2024-10-12 11:05 | XMS_ITS | Data Portability ---
Author Organization [place] [facility], [facility] Address [address] [place] [address] Care Team Providers Care Wage And Salary Administrator Name Role Phone EDISON VOGT Primary Care Provider Assessment No assessment recorded. Plan of Treatment Reminders Order Date Submit Date Provider Last Modified By Organization Details Last Modified Time Details Appointments None recorded . Lab fecal occult blood, stool 2018 019 [email or web address] In-Office Order, Internal Use Only DO Not Attach Compendium DO Not Attach Compendium, Do Not Delete/merge, [id number] 13:55:42 pap, IG + HPV mRNA E6/E7 + reflex HPV (16+18+4 5) 2017 018 [facility], [address], [place], [address], 8 11:49:30 urinalys is, dipstick 2017 018 In-Office Order, Internal Use Only DO Not Attach Compendium DO Not Attach Compendium, Do Not Delete/merge, [id number] 10:34:22 Referral None recorded . Procedures None recorded . Surgeries None recorded . Imaging US, breast - Dense Breasts 2018 019 [email or web address] [facility], [address], [place], [address], 9 14:46:44 MAMMO, screenin g, digital, bilatera l 2018 019 [email or web address] [facility], [address], [place], [address], 9 14:46:44 DEXA 2018 019 [email or web address] [facility], [address], [place], [address], 9 14:46:44 MAMMO, screenin g, digital, bilatera l 2017 018 [facility], [address], [place], [place], [address], 8 10:34:22 Medication Orders None recorded . Patient TargetsNo targets recorded. Patient Instructions Encounter Date Encounter Id Patient Instructions Last Modified By Organization Details Last Modified Time 07/05/2017 [id number] tips to help you stay healthy Not available 07/06/2017 10:56:39 Normal rfid technician exam. BSE reviewed and recommended. Reviewed calcium and vitamin D needs and prevention of osteoporosis. Reviewed normal sharita-menopausal transition symptoms, as well as normal menopausal symptoms. Mammogram recommended yearly after 40 by the ACS and ACOG. Colonoscopy recommended at age 50 unless family history dictates sooner. Not available 07/05/2017 16:14:06 07/16/2018 [id number] tips to help you stay healthy [email or web address] Not available 07/16/2018 13:55:42 Reason for Referral None Reported. Results Created Date Observation Date Name Description Value Unit Range Abnormal Flag Note LastModifiedBy Organization Detail LastModifiedTime 07/16/19 19 07/16/2018 fecal occul t blood , stool Occult Blood negati ve Not Available In-Office Order Internal Use Only DO Not Attach Compendium DO Not Attach Compendium, Do Not Delete/merge, [id number] 07/16/2018 13:43:00 07/05/19 18 07/05/2017 urina lysis , dipst ick Interpretati on negati ve Not Available In-Office Order Internal Use Only DO Not Attach Compendium DO Not Attach Compendium, Do Not Delete/merge, [id number] 07/05/2017 15:58:07 07/05/19 18 07/10/2017 pap, IG + HPV mRNA E6/E7 + refle x HPV (16+1 8+45) clinical information: None given normal Not Available [facility] [address], [place], [address], 07/10/2017 11:49:30 07/05/19 18 07/10/2017 pap, IG + HPV mRNA E6/E7 + refle x HPV (16+1 8+45) LMP: NONE GIVEN normal Not Available [facility] [address], [place], [address], 07/10/2017 11:49:30 07/05/19 18 07/10/2017 pap, IG + HPV mRNA E6/E7 + refle x HPV (16+1 8+45) prev. Pap: NONE GIVEN normal Not Available [facility]- [address], [place], [address], 07/10/2017 11:49:30 07/05/19 18 07/10/2017 pap, IG + HPV mRNA E6/E7 + refle x HPV (16+1 8+45) prev. BX: NONE GIVEN normal Not Available [facility]- [address], [place], [address], 07/10/2017 11:49:30 07/05/19 18 07/10/2017 pap, IG + HPV mRNA E6/E7 + refle x HPV (16+1 8+45) source: None given normal Not Available [facility]- [address], [place], [address], 07/10/2017 11:49:30 07/05/19 18 07/10/2017 pap, IG + HPV mRNA E6/E7 + refle x HPV (16+1 8+45) statement of adequacy: normal Satis facto ry for evalu ation . Endoc ervic al/tr ansfo rmati on zone compo nent prese nt. Not Available [facility]- [address] [place], [address], 07/10/2017 11:49:30 07/05/19 18 07/10/2017 pap, IG + HPV mRNA E6/E7 + refle x HPV (16+1 8+45) interpretati on/result: normal Negat yayo for intra epith elial lesio n or malig delores . Not Available [facility] [place] [facility] [address], [address], 07/10/2017 11:49:30 07/05/19 18 07/10/2017 pap, IG + HPV mRNA E6/E7 + refle x HPV (16+1 8+45) comment: normal This Pap test has been evalu ated with farooq ramirez techn ology . Not Available [facility] [place] [facility] [address], [place], [address], 07/10/2017 11:49:30 07/05/19 18 07/10/2017 pap, IG + HPV mRNA E6/E7 + refle x HPV (16+1 8+45) cytotechnolo gist: normal BK,CT (ASCP ) CT scree martha locat ion: [facility] [address] [facility] [address] [facility], [place] Not Available [facility] [place] [facility] [address], [address], 07/10/2017 11:49:30 07/05/19 18 07/10/2017 pap, IG + HPV mRNA E6/E7 + refle x HPV (16+1 8+45) HPV MRNA E6/E7 Not Detect ed not detect ed normal This test was perfo rmed using the APTIM A HPV Assay ([employer] . This assay detec ts E6/E7 viral messe nger RNA (mRNA ) from 14 high- risk HPV types (16,1 8,31, 33,35 ,39,4 5,51, 52,56 ,58,5 9,66, 68). Not Available [facility] [place] [facility] [address], [place], [address], 07/10/2017 11:49:30 Result Notes None recorded. Problems No Known Problems Procedures Surgical History Date Name Laterality Status Provider Name and Address Organization Details Recorded Time 07/05/19 18 Date of Last Pap Smear completed Cynthia Sampson [facility] 07/05/2017 15:51:05 10/09/19 03 Hysterectomy completed RADHA ALDRIDGE DO [address] [facility], [place], [address], [facility] 07/05/2017 16:06:23 06/10/18 94 Breast Surgery completed Cynthia Sampson [facility] 07/05/2017 15:47:58 Imaging Results None recorded. Procedure Notes None recorded. Medical Equipment None Reported. Allergies No known drug allergies Medications Name Sig Start Date Stop Date Status Note LastModified by Organization Details LastModified Time prednisone 20 mg tablet 2018 completed Not Available Not Available Not Available amoxicillin 875 mg-potassium clavulanate 125 mg tablet 2018 completed Not Available Not Available Not Available Vitals Date Recorded Body height Body mass index (BMI) Body weight Systolic blood pressure Diastolic blood pressure Provider Name and Address Organization Details Last Updated DateTime 07/05/2017 162.56 cm 51.2 kg/m2 210329.5 3 g 130 mm[Hg] 90 mm[Hg] Cynthia Sampson [facility] 8 15:54:10 Date Recorded Body height Body mass index (BMI) Body weight Systolic blood pressure Diastolic blood pressure Provider Name and Address Organization Details Last Updated DateTime 07/16/2018 162.56 cm 42.4 kg/m2 154345.3 2 g 124 mm[Hg] 80 mm[Hg] Zenaida Beyer [facility] 9 13:27:26 Social History Question Answer Notes LastModified by Organizat ion Details LastModified Time Tobacco Smoking Status Never Smoker Cynthia warner [facility] 07/05/2017 15:55:55 What Is Your Level Of Alcohol Consumption? Occasional [email or web address] Information not available 07/05/2017 What Is Your Occupation? Works At [employer]. Information not available 07/05/2017 Does Your Partner Physically Hurt You Or Threaten To Hurt You? No Information not available 07/16/2018 Has Your Partner Forced You To Have Sex Or Perform Sex Acts When You Did Not Want To? No Information not available 07/16/2018 Does Your Partner Insult, Scream At Or Talk Down To You? No Information not available 07/16/2018 Does Your Partner Control You Or Any Part Of Your Life? No Information not available 07/16/2018 Are You Afraid Of Your Partner? No Information not available 07/16/2018 Drug Use? No Information no t available 07/05/2017 Do You Feel Safe At Home? Yes Information not available 07/05/2017 What Was The Date Of Your Most Recent Tobacco Screening? 07/16/2018 Information not available 12/31/2018 How Many Children Do You Have? 0 Information not available 07/05/2017 Sex: Unknown Functional Status None recorded. Mental Status None recorded. Family History Relationship Description Onset Age of this Age Resolved Age Notes LastModified by Organization Details LastModified Time Father Malignant neoplasm of prostate 57 57 [email or web address] Not available 2017 15:55:30 Mother Malignant tumor of gallbladder 68 68 on 07/05 [email or web address] Not available 07/05/2017 16:02:02 Medical History No medical history recorded. Gynecological History Statement/Question Response Abnormal Pap N Flow Date of Last Mammogram Breast Biopsy Y Post Menopausal Bleeding N STIs/STDs N Age at Menarche 10 Current Control Method Hysterectom y Date of Last Colonoscopy Sexually Active? Y Bladder Problems N Sexual Problems? N Date of Last Pap Smear 07/05/2017 Obstetrics History GPAL:G 0 P 0 0 0 0 Past Encounters Encounter ID Performer Location Encounter Start Date Encounter Closed Date Diagnosis/Indication Diagnosis SNOMED-CT Code Diagnosis ICD10 Code Diagnosis Note [id number] RADHA ALDRIDGE DO TSW1 [address] [place] [address] 07/05/2017 15:26:52 07/08/2017 08:48:35 Gynecologic examination 56419815 Z01.419 Z12.4 Normal exam. Patient lost >60 pounds after gastric sleeve. She had a supracervi carmelo hysterecto my in 2002 for fibroids. She has no complaints /questions at this visit today. [id number] RADHA ALDRIDGE DO SOG1 [address] [place] [address] 07/16/2018 13:24:00 07/16/2018 14:03:19 Gynecologic examination 64387797 Z01.419 Z12.4 Z12.31 Normal pelvic exam, pap deferred. Recommende d seeing dermatolog ist yearly due to very fair skin and consistent ly using sunscreen. Screening mammography 24 817620 Z12.31 Screening for osteoporosis 216047245 Z13.820 Z78.0 Health Concerns Section Related Observation LastModified by Organization Detai ls LastModified Time None Recorded Concern Status LastModified by Organization Details LastModified Time None Recorded Advance Directives Directive None Recorded Payers Encounter Date Sequence Insurance Name Policy Number Policy Gomez Covered Member ID Gomez Member ID Guarantor Name 07/05/2017 1 [place] ([place]) [id number] Jodine Margaret [id number] Jodine Margaret 07/16/2018 1 [place] ([place]) [id number] Jodine Margaret [id number] Jodine Margaret Notes Date Note Type Note Provider Name and Address Organization Details Recorded Time 07/05/2017 text/html 52yo G0 presents for annual gynecological examination. She has had a supracervical hysterectomy for fibroids and menorrhagia. She reports occasional hot flushes and night sweats that were more present a few years ago. She has no complaints at this time. RADHA ALDRIDGE DO [address] [facility], [place], [address], [place] [facility] 07/06/2017 10:56:45 07/16/2018 text/html 53yo G0 presents for annual exam. She is doing well without issues. She reports occasional hot flushes but no vaginal dryness. Jewell without issues. She has lost another 50lbs since gastric sleeve. She is off of many medications and no longer has hypertension. RADHA ALDRIDGE DO [address] [facility], [address], [place], [address], [place] [facility] 07/16/2018 13:59:50 OBGyn Episode No OBEpisode recorded.
--- OUTSIDE RECORDS SUMMARY | 2024-10-12 11:05 | XMS_ITS | Encounter Summary ---
Author Organization [facility] Address [address] [place] [address] Care Team Providers Care Analysis Engineer Name Role Phone None, None Primary Care Provider Carmen Gaines NP Primary Care Provider Encounter Details Date Type Department Care Team (Late st Contact Info) Description 10/06/2015 Scanned Document [address] [place] [address] Provider, Generic Social History Tobacco Use Types Packs/Day Years Used Date Smoking Tobacco: Never Assessed Smokeless Tobacco: Never Alcohol Use Standard Drinks/Week Comments Yes 2 (1 standard drink = 0.6 oz pur e alcohol) 1 to 2 times a month Comments Unknown Sex and Gender Information Value Date Recorded Sex Assigned at Not on file Legal Sex Female 11:36 AM EDT Gender Identity Not on file Sexual Orientation Not on file documented as of this encounter Plan of Treatment Not on file documented as of this encounter Procedures Procedure Name Priority Date/Time Associated Diagnosis Comments PATHOLOGY GASTROENTEROLOGY 10/06/2015 documented in this encounter Results * PATHOLOGY GASTROENTEROLOGY (10/06/2015) Narrative 10/06/2015 Ordered by an unspecified provider. us Generic Provider [facility] HX PATH PROCEDURES Final Re sult documented in this encounter Visit Diagnoses Not on filedocumented in this encounter Care Teams Analysis Engineer Relationship Specialty Start Date End Date None, None PCP - General 09/20/15 11/27/15 Carmen Little NP [address] [place] [address] PCP - General 11/28/15 documented as of this encounter
--- OUTSIDE RECORDS SUMMARY | 2024-10-12 11:05 | XMS_ITS | Encounter Summary ---
Author Organization [facility] Address [address] [place] [address] Care Team Providers Care Marketing Summer Intern Name Role Phone None, None Primary Care Provider Carmen Gaines NP Primary Care Provider [phone] Encounter Details Date Type Department Care Team (Late st Contact Info) Description 10/03/2015 Scanned Document [address] [place] [phone] Provider, Generic Social History Tobacco Use [...] Priority Date/Time Associated Diagnosis Comments PATHOLOGY GASTROENTEROLOGY 10/03/2015 documented in this encounter Results * PATHOLOGY GASTROENTEROLOGY (10/03/2015) Narrative 10/03/2015 Ordered by an unspecified provider. us Generic Provider [facility] HX PATH PROCEDURES Final Re sult documented in this encounter Visit Diagnoses Not on filedocumented in this encounter Care Teams Marketing Summer Intern Relationship Specialty Start Date End Date None, None PCP - General 09/20/15 11/27/15 Carmen Little NP [address] [place] [address] PCP - General 11/28/15 documented as of this encounter
--- OUTSIDE RECORDS SUMMARY | 2024-10-12 11:05 | XMS_ITS | Encounter Summary ---
Author Organization [facility] Address [address] [place] [address] Care Team Providers Care Supervisor Compressed Yeast Name Role Phone None, None Primary Care Provider Carmen Gaines NP Primary Care Provider [phone] Encounter Details Date Type Department Care Team (Late st Contact Info) Description 10/17/2015 Scanned Document [address] [place] [id number] Provider, Generic Social History Tobacco Use [...] on filedocumented in this encounter Care Teams Supervisor Compressed Yeast Relationship Specialty Start Date End Date None, None PCP - General 09/20/15 11/27/15 Carmen Little NP [address] [place] [address] PCP - General 11/28/15 documented as of this encounter
--- OUTSIDE RECORDS SUMMARY | 2024-10-12 11:05 | XMS_ITS | Data Portability ---
Author Organization [facility] [employer] [facility] Address [address] [address] Assessment No assessment recorded. Plan of Treatment Reminders Order Date Submit Date Provider Last Modified By Organization Details Last Modified Time Details Appointments None record ed. Lab None record ed. Referral None record ed. Procedures None record ed. Surgeries None record ed. Imaging None record ed. Medication Orders None record ed. Patient TargetsNo targets recorded. Patient InstructionsNo instructions recorded. Reason for Referral None Reported. Medical Equipment None Reported. Medications Name Sig Start Date Stop Date Status Note LastModified by Organization Details LastModified Time cyclobenzapri ne 10 mg tablet TAKE 1 TABLET 3 TIMES A DAY BY ORAL ROUTE. active Not Available Not Available No t Available methocarbamol 500 mg tablet active Not Available Not Availabl e Not Available methocarbamol 750 mg tablet TAKE 1 [...] Available Not Available N ot Available Vitals None Recorded Social History None recorded. Functional Status None recorded. Mental Status None recorded. Family History Nothing Reported. Medical History No medical history recorded. Gynecological HistoryNo gynecological history recorded. Obstetrics History GPAL:G 0 P 0 0 0 0 Immunizations Vaccine Type Date Status Note Provider Nam nicholas and Address Organization Details Recorded Time COVID-19, mRNA, LNP-S, bivalent, PF, 50 mcg/0.5 mL or 25mcg/0.25 mL dose 03/27/2022 completed [facility] [place] [facility] 03/27/2022 12:50:07 Past Encounters Encounter ID Performer Location Encounter Start Date Encounter Closed Date Diagnosis/Indication Diagnosis SNOMED-CT Code Diagnosis ICD10 Code Diagnosis Note [id number] Jose Guadalupe Flores PA-C [facility] [address] [place] [address] 03/27/2022 12:24:27 03/27/2022 14:51:44 Administration of SARS-CoV-2 mRNA vaccine [id number] Z23 Booster Guidance: Moderna COVID-19 Vaccine, Bivalent is authorized for use in individual s 12 years of age and older as a single booster dose (0.5 mL) administer ed at least 2 months after either: ? completion of primary vaccinatio n with any authorized or approved monovalent COVID-19 vaccine, OR ? receipt of the most recent booster dose with any authorized or approved monovalent COVID-19 vaccine. Potential side effects: Pain at the injection site, fatigue, headache, myalgia, arthralgia , chills, axillary swelling/t enderness, nausea/vom iting, erythema at the injection site, swelling at the injection site, and fever Screening form completed: {{Yes* No} } Patient meets criteria to receive the Moderna COVID-19 Vaccine, Bivalent: {{Yes* No} } Moderna vaccinatio n screening questionna diana completed and reviewed by clinical staff. Appropriat e clinical guidance provided based on patient responses. Health Concerns Section Related Observation LastModified by Organization Detai ls LastModified Time None Recorded Concern Status LastModified by Organization Details LastModified Time None Recorded Advance Directives Directive None Recorded Payers Encounter Date Sequence Insurance Name Policy Number Policy Gomez Covered Member ID Gomez Member ID Guarantor Name 03/27/2022 1 [facility] [id number] Jodine Ranjana [place] [id number] Jodine Ranjana [place] OBGyn Episode No OBEpisode recorded.
--- OUTSIDE RECORDS SUMMARY | 2024-10-12 11:05 | XMS_ITS | Encounter Summary ---
Author Organization [facility] Address [address] [place] [id number] Care Team Providers Care Creative Lead Name Role Phone Carmen Little NP Primary Care Provider [phone] Encounter Details Date Type Department Care Team (Late st Contact Info) Description 10/20/2018 Scanned Document [facility] Rheumatology [address] [id number] Robinson Lau, DO [address] [place], [place] [id number] Social History Tobacco Use Types Packs/Day Years [...] on filedocumented in this encounter Care Teams Creative Lead Relationship Specialty Start Date End Date Carmen Little NP [address] [facility] [place] [address] PCP - General 11/28/15 documented as of this encounter
--- OUTSIDE RECORDS SUMMARY | 2024-10-12 11:05 | XMS_ITS | Clinical Summary ---
Author Organization [facility] Address [address] [place] [address] Care Team Providers Care Microbiological Laboratory Technician Name Role Phone Carmen Little NP Primary Care Provider [phone] Allergies No known active allergies Medications Multiple Vitamins-Mineral s (MULTIVITAMIN WITH MINERALS) tablet Take 1 tablet by mouth 2 (two) times a day. Active calcium-vitamin D (OSCAL-500) 500-200 MG-UNIT per tablet Take 1 tablet by mouth 2 (two) times a day. With food. Active Active Problems Problem Noted Date Diagnosed Date Morbid obesity 10/17/2015 Erythema intertrigo 10/17/2015 Hypertension 10/06/2015 Venous insufficiency 10/06/2015 Back pain 10/06/2015 Bariatric surgery status 10/06/2015 Resolved Problems Problem Noted Date Diagnosed Date Resolved Date Joint pain 10/06/2015 10/08/2016 Immunizations Immunization Administration Dates Next Due Tdap 05/03/2018 Family History Medical History Relation Name Comments Hypertension Brother Obesity Brother Hypertension Father Obesity Father Prostate cancer Father Hypertension Mother Obesity Mother Diabetes Sister Hypertension Sister Obesity Sister Relation Name Status Comments Brother Alive Father Mother Sister Alive Social History Tobacco Use Types Packs/Day Years [...] on file Sexual Orientation Not on file Last Filed Vital Signs Vital Sign Reading Time Taken Comments Blood Pressure 122/68 10/08/2016 4:11 PM EDT Pulse 60 10/08/2016 4:11 PM EDT Temperature 36.8 ??C (98.2 ??F) 10/17/2015 2:05 PM ED T Respiratory Rate 12 10/08/2016 4:11 PM EDT Oxygen Saturation - - Inhaled Oxygen Concentration - - Weight 107 kg (235 lb) 10/08/2016 4:11 PM EDT Height 162.6 cm (5' 4 ) 10/08/2016 4:11 PM EDT Body Mass Index 40.34 10/08/2016 4:11 PM EDT Plan of Treatment Health Maintenance Due Date Last Done Comments Hepatitis C Virus Screening 1963 HIV Screening 1976 Pap Smear (Ages 21-65) 1984 Mammogram 2003 Colonoscopy 2008 Pneumococcal Vaccines 50+ (1 of 1 - PCV) 2013 Zoster (Shingles) Vaccine (1 of 2) 2013 Influenza Vaccine 01/09/2024 COVID-19 Vaccine (1 - 2023-2 5 season) 2024 DTaP/Tdap/Td Vaccines (2 - T d or Tdap) 05/03/2028 05/03/2018 RSV Vaccine 60 years and old er and Patients (1 - 1-dose 75+ series) 2038 Hepatitis B Vaccines Aged Out No long er eligible based on patient's age to complete this topic [facility] Care Teams Microbiological Laboratory Technician Relationship Specialty Start Date End Date Carmen Little NP [address] [facility] [place] [address] PCP - General 11/28/15
== END 2024-10-12 10:26 | disposition home or self-care (01) ==
LOC: HO.HMCFM 09:56
PROVIDERS: PCP Nurse Practitioner Family; Visit Provider Nurse Practitioner Family
DX: I10 Essential (primary) hypertension (principal); R73.03 Prediabetes; Z13.9 Encounter for screening, unspecified

== ENCOUNTER → 2024-10-12 09:55 | Outpatient (BNVA) | payer OTHER, SELFPAY | PROVIDERS: PCP Nurse Practitioner Family; Visit Provider Nurse Practitioner Family | DX: I10 Essential (primary) hypertension (principal); R73.03 Prediabetes | CPT/HCPCS: 83036 ==

== ENCOUNTER 2024-10-28 09:00 | Outpatient (AMB) | payer OTHER, SELFPAY ==
--- NOTE | 2024-10-28 09:04 | A.OFFVIS_ITS ---
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 She is doing well with no felling machine operator concerns. Currently sexually active. Denies any vaginal dryness or irritation. STI testing offered; she declines. Attempting to eat a healthy diet with calcium and vitamin D and stays active with exercise. Hysterectomy due to large fibroid. History of negative Pap in 2023. Last mammogram; 2023, history calcifications and fibroadenoma. Colonoscopy is UTD. Denies any family history of breast, ovarian or colon cancer. [facility] Medical History High blood pressure Surgical History (Updated 10/28/24 @ 09:[address] CNM) History of breast biopsy History of hysterectomy leaving cervix intact H/O gastric sleeve S/P gastric sleeve procedure Family History Mother High blood pressure Father High blood pressure Family/Other Diabetes Social History Housing: Other (RV) Housing Other:: RV Alcohol intake: current Alcohol intake frequency: holidays/special occasions only Patient Tobacco Use Status: Never used Tobacco e-Cigarette/Vaping Use: Never Used service: No Current occupational status: employed 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 Cognitive needs: No Hearing needs: No Vision needs: No Female Reproductive History Menstrual Age of Menarche: 11 Menopause type: surgical Total pregnancies: 0 Date of last pap smear: 10/22/23 (neg pap and hpv) Date of Mammogram: 10/22/23 (Birad 0, 12/06/23 birad 2) Review of Systems Const All systems reviewed & are unremarkable except as noted in HPI and below Reports as per HPI Eyes Reports no additional complaints ENT Reports no additional complaints Card Reports no additional complaints Resp Reports no additional complaints GI Reports as per HPI and Reports no additional complaints Reports as per HPI Musc Reports no additional complaints Skin/Breast Reports as per HPI Neuro Reports no additional complaints Psych Reports no additional complaints Endo Reports no additional complaints Bryce/Lymph Reports no additional complaints Aller/Immun Reports no additional complaints Physical Exam Vital Signs: Last Vital Signs BP 120/80 10/28/24 09:06 BMI result Body Mass Index 46.3 Const General: cooperative, healthy appearing, no acute distress, well developed and alert Orientation/consciousness: patient oriented x3 HEENT Head: Yes normal to inspection Eyes General: appearance normal, both eyes and all related structures Neck Neck: Yes normal visual inspection Thyroid: Thyroid normal Chest Chest palpation & inspection: normal inspection of the chest and other (no puckering, dimpling, peau de orange, retraction, discharge, masses) Breast/axilla inspection: normal inspection of the breasts Breast/axilla palpation: normal palpation of the breasts Resp Effort & Inspection: normal respiratory effort GI Inspection: Yes normal to inspection, Yes obesity and Yes scar Palpation (GI): Soft to palpation Rectal Exam - Female: deferred General: Yes bladder normal to palpation External Female Exam: normal external appearance and normal appearance of the urethra Speculum Exam - Vagina: normal appearance of the vagina, normal palpation and normal vaginal discharge Speculum Exam - Cervix: normal appearance of the cervix and normal palpation Bimanual exam- vagina & uterus: normal bimanual exam, normal palpation, bladder normal to palpation, normal palpation and uterus absent Bimanual Exam- Adnexa, other: no masses Skin General skin exam: no rashes or lesions noted Rashes: no rashes Neuro General: patient oriented x3 Cognition (Neuro): normal cognition Extrem General: Yes normal to inspection Psych Attitude: cooperative Thought process: Normal thought process present Assessment & Plan Assessment & Plan (1) Encounter for well woman exam with routine gynecological exam: Code(s): Z01.419 - Encounter for gynecological examination (general) (routine) without abnormal findings Category: Medical Plan Discussed: Current recommendations for pap smears per ASCCP guidelines. Breast awareness, periodic self breast exams and yearly mammogram. Maintain a healthy lifestyle, well balanced diet including Calcium 1,200 mg and Vitamin D 600 IU daily, and routine exercise. Patient verbalizes understanding and agrees to the plan of care. She was given opportunity to ask questions and all questions were answered to the best of my ability. RTO in 1 year for annual felling machine operator exam. This note is constructed using voice recognition software. While every effort has been made to ensure accuracy, liquid floor and wall applier errors may have been included. Coding Level of Care Code Est Pt Prev Care 40-64y(35202) Diagnoses Encounter for well woman exam with routine gynecological exam Z01.419
[2024-10-28 09:06] VITALS: BP 120/80; BMI 46.3
--- OUTSIDE RECORDS SUMMARY | 2024-10-28 10:16 | XMS_ITS | Data Portability ---
Author Organization [facility], [facility] Clinic Address [address] [place] [address] Assessment No assessment recorded. Plan of Treatment [...] n 2018 019 Mandeep Farias MD, [address], [address], 9 09:34:28 Procedures suture removal (PROC) 2017 018 ALINA [facility], [address] [place] [address], [address], 8 14:33:50 Surgeries None recorded. Imaging None [...] advance directives, including living will, power of health care attorney and health care proxy. Standard forms for these advance directives were {{given to offered to but declined by}} same. Face to face discussion lasted for a duration of {{0* 16 17 18 19 20}} minutes. Not available 10/17/2017 16:32:32 10/20/2018 [address] Form [facility] [email or web address] Not available 10/20/2018 09:45:44 ? ? 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 Not Available [facility] [address] [facility], [place], [address], 12/02/2017 08:01:41 12/03/19 18 12/02/2017 lipid panel , serum trigl serpl-mcnc 160 mg/dL <150 high Justa l: <150 mg/dl Borde rline -High : 150-1 99 mg/dl High: 200-4 99 mg/dl Very High: >500 mg/dl Refer ence range recom menda tions from the Natio nal Josette stero l Educa tion Progr am (NCEP ), 1. Not Available [facility] [address] [place], [address], 12/02/2017 08:01:41 12/03/19 18 12/02/2017 lipid panel [...] Progr am (NCEP ), 1. Not Available [facility] [address] [place], [address], 12/02/2017 08:01:41 12/03/19 18 12/02/2017 lipid panel [...] days of colle ction . Not Available [facility] [address] [place], [address], 12/02/2017 08:01:41 12/03/19 18 12/02/2017 CMP, serum or plasm a glucose serpl-mcnc 93 mg/dL 70-110 normal Not Available [facility] [address] [place], [address], 12/02/2017 08:01:40 12/03/19 18 12/02/2017 CMP, serum or plasm a BUN serpl-mcnc 21 mg/dL 7-18 high Not Available [facility] [address] [place], [address], 12/02/2017 08:01:40 12/03/19 18 12/02/2017 CMP, serum or plasm a creat serpl-mcnc 0.9 mg/dL 0.6-1. 0 normal Not Available [facility] [address] [place], [address], 12/02/2017 08:01:40 12/03/19 18 12/02/2017 CMP, serum or plasm a GFR/bsa pred.non black serpl MDRD-arvrat > 60 mL/mi n >60 normal If patie nt is Afric an Ameri can multi ply by 1.21. Not Available [facility] [address] [place], [address], 12/02/2017 08:01:40 12/03/19 18 12/02/2017 CMP, serum or plasm a creat cL/bsa.pred serpl C-g-arvrat Test not perfor med mL/mi n normal Weigh t pelon ng, canno t calcu late CRCL Not Available [facility] [address] [place], [address], 12/02/2017 08:01:40 12/03/19 18 12/02/2017 CMP, serum or plasm a sodium serpl-scnc 143 mmol/ L 136-14 5 normal Not Available [facility] [address] [place], [address], 12/02/2017 08:01:40 12/03/19 18 12/02/2017 CMP, serum or plasm a potassium serpl-scnc 4.4 mmol/ L 3.5-5. 1 normal Not Available [facility] [address] [place], [address], 12/02/2017 08:01:40 12/03/19 18 12/02/2017 CMP, serum or plasm a chloride serpl-scnc 107 mmol/ L 98-110 normal Not Available [facility] [address] [place], [address], 12/02/2017 08:01:40 12/03/19 18 12/02/2017 CMP, serum or plasm a CO2 serpl-scnc 27 mmol/ L 21-32 normal Not Available [facility] [address] [place], [address], 12/02/2017 08:01:40 12/03/19 18 12/02/2017 CMP, serum or plasm a calcium serpl-mcnc 9.0 mg/dL 8.5-10 .1 normal Not Available [facility] [address] [place], [address], 12/02/2017 08:01:40 12/03/19 18 12/02/2017 CMP, serum or plasm a prot serpl-mcnc 7.0 g/dL 6.4-8. 0 normal Not Available [facility] [address] [place], [address], 12/02/2017 08:01:40 12/03/19 18 12/02/2017 CMP, serum or plasm a albumin serpl bcp-mcnc 3.6 g/dL 3.4-5. 0 normal Not Available [facility] [address] [place], [address], 12/02/2017 08:01:40 12/03/19 18 12/02/2017 CMP, serum or plasm a bilirub serpl-mcnc 0.6 mg/dL 0.2-1. 0 normal Not Available [facility] [address] [place], [address], 12/02/2017 08:01:40 12/03/19 18 12/02/2017 CMP, serum or plasm a AST serpl W P-5'-P-ccnc 24 U/L 15-37 normal Not Available [facility] [address] [place], [address], 12/02/2017 08:01:40 12/03/19 18 12/02/2017 CMP, serum or plasm a ALT serpl W P-5'-P-ccnc 31 U/L 12-78 normal Not Available [facility] [address] [place], [address], 12/02/2017 08:01:40 12/03/19 18 12/02/2017 CMP, serum or plasm a ALP serpl-ccnc 75 U/L 45-117 normal Not Available [facility] [address] [place], [address], 12/02/2017 08:01:40 12/03/19 18 12/02/2017 CBC WBC NRBC cor # bld auto 7.50 10-3/ uL 3.6-11 .1 normal Not Available [facility] [address] [place], [address], 12/02/2017 08:02:59 12/03/19 18 12/02/2017 CBC RBC # bld auto 4.98 10-6/ uL 3.69-5 .16 normal Not Available [facility] [address] [place], [address], 12/02/2017 08:02:59 12/03/19 18 12/02/2017 CBC HGB bld-mcnc 15.0 g/dL 11.6-1 5.2 normal Not Available [facility] [address] [place], [address], 12/02/2017 08:02:59 12/03/19 18 12/02/2017 CBC HCT vfr bld auto 42.6 % 34.4-4 5.7 normal Not Available [facility] [address] [place], [address], 12/02/2017 08:02:59 12/03/19 18 12/02/2017 CBC MCV RBC auto 85.5 fL 81.1-9 8.7 normal Not Available [facility] [address] [place], [address], 12/02/2017 08:02:59 12/03/19 18 12/02/2017 CBC MCH RBC qn auto 30.1 pg 26.8-3 3.2 normal Not Available [facility] [address] [place], [address], 12/02/2017 08:02:59 12/03/19 18 12/02/2017 CBC MCHC RBC auto-mcnc 35.2 g/dL 32.3-3 5.6 normal Not Available [facility] [address] [place], [address], 12/02/2017 08:02:59 12/03/19 18 12/02/2017 CBC RDW RBC auto-RTO 12.1 % 10.9-1 5.8 normal Not Available [facility] [address] [place], [address], 12/02/2017 08:02:59 12/03/19 18 12/02/2017 CBC platelet # bld auto 231 10-3/ uL 122-40 0 normal Not Available [facility] [address] [place], [address], 12/02/2017 08:02:59 12/03/19 18 12/02/2017 CBC pmv bld auto 8.1 fL 7.1-10 .8 normal Not Available [facility] [address] [place], [address], 12/02/2017 08:02:59 05/09/20 18 05/09/2018 gilberto orosco (PROC ) Suture Removal Nose Not Available [facility] [address] [place], [address], 05/09/2018 13:39:40 07/24/19 19 07/24/2018 BMP, serum or plasm a glucose serpl-mcnc 97 mg/dL 70-110 normal Not Available [facility] [address] [place], [address], 07/24/2018 22:39:19 07/24/19 19 07/24/2018 BMP, serum or plasm a BUN serpl-mcnc 26 mg/dL 7-18 high Not Available [facility] [address] [place], [address], 07/24/2018 22:39:19 07/24/1907/24/2018 BMP, serum or plasm a creat serpl-mcnc 1.1 mg/dL 0.6-1. 0 high Not Available [facility] [address] [place], [address], 07/24/2018 22:39:19 07/24/1907/24/2018 BMP, serum or plasm a GFR/bsa pred.non black serpl MDRD-arvrat 55 mL/mi n >60 low If patie nt is Afric an Ameri can multi ply by 1.21. Not Available [facility] [address] [place], [address], 07/24/2018 22:39:19 07/24/1907/24/2018 BMP, serum or plasm a creat cL/bsa.pred serpl C-g-arvrat 50 mL/mi n normal Not Available [facility] [address] [place], [address], 07/24/2018 22:39:19 07/24/1907/24/2018 BMP, serum or plasm a sodium serpl-scnc 142 mmol/ L 136-14 5 normal Not Available [facility] [address] [place], [address], 07/24/2018 22:39:19 07/24/1907/24/2018 BMP, serum or plasm a potassium serpl-scnc 3.9 mmol/ L 3.5-5. 1 normal Not Available [facility] [address] [place], [address], 07/24/2018 22:39:19 07/24/1907/24/2018 BMP, serum or plasm a chloride serpl-scnc 108 mmol/ L 98-110 normal Not Available [facility] [address] [place], [address], 07/24/2018 22:39:19 07/24/1907/24/2018 BMP, serum or plasm a CO2 serpl-scnc 26 mmol/ L 21-32 normal Not Available [facility] [address] [place], [address], 07/24/2018 22:39:19 07/24/1907/24/2018 BMP, serum or plasm a calcium serpl-mcnc 9.8 mg/dL 8.5-10 .1 normal Not Available [facility] [address] [place], [address], 07/24/2018 22:39:19 07/24/1907/24/2018 uric acid, serum or plasm a urate serpl-mcnc 8.5 mg/dL 2.6-6. 0 high Not Available [facility] [address] [place], [address], 07/24/2018 22:39:19 07/24/1907/24/2018 C-dalia ctive prote in, quant itati ve, serum or plasm a CRP serpl-mcnc 1.6 1 0.0-0. 3 high Not Available [facility] [address] [place], [address], 07/24/2018 22:39:19 07/24/19 19 07/24/2018 CBC w/ auto diff WBC NRBC cor # bld auto 10.30 10-3/ uL 3.6-11 .1 normal Not Available [facility] [address] [place], [address], 07/25/2018 00:33:38 07/24/1907/24/2018 CBC w/ auto diff RBC # bld auto 4.92 10-6/ uL 3.69-5 .16 normal Not Available [facility] [address] [place], [address], 07/25/2018 00:33:38 07/24/19 19 07/24/2018 CBC w/ auto diff HGB bld-mcnc 14.7 g/dL 11.6-1 5.2 normal Not Available [facility] [address] [place], [address], 07/25/2018 00:33:38 07/24/19 19 07/24/2018 CBC w/ auto diff HCT vfr bld auto 41.2 % 34.4-4 5.7 normal Not Available [facility] [address] [place], [address], 07/25/2018 00:33:38 07/24/1907/24/2018 CBC w/ auto diff MCV RBC auto 83.8 fL 81.1-9 8.7 normal Not Available [facility] [address] [place], [address], 07/25/2018 00:33:38 07/24/19 19 07/24/2018 CBC w/ auto diff MCH RBC qn auto 29.8 pg 26.8-3 3.2 normal Not Available [facility] [address] [place], [address], 07/25/2018 00:33:38 07/24/19 19 07/24/2018 CBC w/ auto diff MCHC RBC auto-mcnc 35.6 g/dL 32.3-3 5.6 normal Not Available [facility] [address] [place], [address], 07/25/2018 00:33:38 07/24/19 19 07/24/2018 CBC w/ auto diff RDW RBC auto-RTO 12.5 % 10.9-1 5.8 normal Not Available [facility] [address] [place], [address], 07/25/2018 00:33:38 07/24/19 19 07/24/2018 CBC w/ auto diff platelet # bld auto 216 10-3/ uL 122-40 0 normal Not Available [facility] [address] [place], [address], 07/25/2018 00:33:38 07/24/1907/24/2018 CBC w/ auto diff pmv bld auto 9.0 fL 7.1-10 .8 normal Not Available [facility] [address] [place], [address], 07/25/2018 00:33:38 07/24/1907/24/2018 CBC w/ auto diff neutrophils nfr bld auto 72.2 % delta Delta : 48.7 on 11/26-0 636 Not Available [facility] [address] [place], [address], 07/25/2018 00:33:38 07/24/19 19 07/24/2018 CBC w/ auto diff lymphocytes nfr bld auto 17.9 % delta Delta : 39.9 on 11/26-0 636 Not Available [facility] [address] [place], [address], 07/25/2018 00:33:38 07/24/1907/24/2018 CBC w/ auto diff monocytes nfr bld auto 5.6 % normal Not Available [facility] [address] [place], [address], 07/25/2018 00:33:38 07/24/1907/24/2018 CBC w/ auto diff eosinophil nfr bld auto 2.7 % normal Not Available [facility] [address] [place], [address], 07/25/2018 00:33:38 07/24/1907/24/2018 CBC w/ auto diff basophils nfr bld auto 1.6 % normal Not Available [facility] [address] [place], [address], 07/25/2018 00:33:38 07/24/1907/24/2018 CBC w/ auto diff neutrophils # bld auto 7.5 10-3/ uL 2.0-7. 5 normal Not Available [facility] [address] [place], [address], 07/25/2018 00:33:38 07/24/1907/24/2018 CBC w/ auto diff lymphocytes # bld auto 1.8 10-3/ uL 1.5-4. 5 normal Not Available [facility] [address] [place], [address], 07/25/2018 00:33:38 07/24/1907/24/2018 CBC w/ auto diff monocytes # bld auto 0.6 10-3/ uL 0.2-1. 0 normal Not Available [facility] [address] [place], [address], 07/25/2018 00:33:38 07/24/19 19 07/24/2018 CBC w/ auto diff eosinophil # bld auto 0.3 10-3/ uL 0.0-0. 7 normal Not Available [facility] [address] [place], [address], 07/25/2018 00:33:38 07/24/19 19 07/24/2018 CBC w/ auto diff basophils # bld auto 0.2 10-3/ uL 0.0-0. 1 high Not Available [facility] [address] [place], [address], 07/25/2018 00:33:38 07/24/1907/24/2018 CBC w/ auto diff NRBC # bld auto 0.0 1 0.0-0. 3 normal Not Available [facility] [address] [place], [address], 07/25/2018 00:33:38 07/24/19 19 07/24/2018 ESR (eryt hrocy te sedim entat ion rate) , blood ESR bld qn 18 mm 0-30 normal Not Available [facility] [address] [place], [address], 07/25/2018 00:33:39 12/03/19 19 12/02/2018 CMP, serum or plasm a glucose serpl-mcnc 89 mg/dL 70-110 normal Not Available [facility] [address] [place], [address], 12/02/2018 09:43:05 12/03/19 19 12/02/2018 CMP, serum or plasm a BUN serpl-mcnc 27 mg/dL 7-18 high Not Available [facility] [address] [place], [address], 12/02/2018 09:43:05 12/03/19 19 12/02/2018 CMP, serum or plasm a creat serpl-mcnc 1.1 mg/dL 0.6-1. 0 high Not Available [facility] [address] [place], [address], 12/02/2018 09:43:05 12/03/19 19 12/02/2018 CMP, serum or plasm a GFR/bsa pred.non black serpl MDRD-arvrat 55 mL/mi n >60 low If patie nt is Afric an Ameri can multi ply by 1.21. Not Available [facility] [address] [place], [address], 12/02/2018 09:43:05 12/03/1912/02/2018 CMP, serum or plasm a creat cL/bsa.pred serpl C-g-arvrat Test not perfor med mL/mi n normal Weigh t pelon ng, canno t calcu late CRCL Not Available [facility] [address] [place], [address], 12/02/2018 09:43:05 12/03/1912/02/2018 CMP, serum or plasm a sodium serpl-scnc 142 mmol/ L 136-14 5 normal Not Available [facility] [address] [place], [address], 12/02/2018 09:43:05 12/03/1912/02/2018 CMP, serum or plasm a potassium serpl-scnc 4.6 mmol/ L 3.5-5. 1 normal Not Available [facility] [address] [place], [address], 12/02/2018 09:43:05 12/03/1912/02/2018 CMP, serum or plasm a chloride serpl-scnc 108 mmol/ L 98-110 normal Not Available [facility] [address] [place], [address], 12/02/2018 09:43:05 12/03/1912/02/2018 CMP, serum or plasm a CO2 serpl-scnc 29 mmol/ L 21-32 normal Not Available [facility] [address] [place], [address], 12/02/2018 09:43:05 12/03/19 19 12/02/2018 CMP, serum or plasm a calcium serpl-mcnc 9.5 mg/dL 8.5-10 .1 normal Not Available [facility] [address] [place], [address], 12/02/2018 09:43:05 12/03/1912/02/2018 CMP, serum or plasm a prot serpl-mcnc 6.8 g/dL 6.4-8. 0 normal Not Available [facility] [address] [place], [address], 12/02/2018 09:43:05 12/03/1912/02/2018 CMP, serum or plasm a albumin serpl bcp-mcnc 3.8 g/dL 3.4-5. 0 normal Not Available [facility] [address] [place], [address], 12/02/2018 09:43:05 12/03/1912/02/2018 CMP, serum or plasm a bilirub serpl-mcnc 0.4 mg/dL 0.2-1. 0 normal Not Available [facility] [address] [place], [address], 12/02/2018 09:43:05 12/03/1912/02/2018 CMP, serum or plasm a AST serpl W P-5'-P-ccnc 18 U/L 15-37 normal Not Available [facility] [address] [place], [address], 12/02/2018 09:43:05 12/03/19 19 12/02/2018 CMP, serum or plasm a ALT serpl W P-5'-P-ccnc 23 U/L 12-78 normal Not Available [facility] [address] [place], [address], 12/02/2018 09:43:05 12/03/1912/02/2018 CMP, serum or plasm a ALP serpl-ccnc 77 U/L 45-117 normal Not Available [facility] [address] [place], [address], 12/02/2018 09:43:05 12/03/1912/02/2018 lipid panel , serum cholest serpl-mcnc 209 mg/dL <200 high Ginna able: <200 mg/dl Borde rline -High : 200-2 39 mg/dl High: >/= 240 mg/dl Refer ence range recom menda tions from the Natio nal Josette stero l Educa tion Progr am (NCEP ), 1. Not Available [facility] [address] [place], [address], 12/02/2018 09:43:06 12/03/1912/02/2018 lipid panel , serum trigl serpl-mcnc 94 mg/dL <150 normal Justa l: <150 mg/dl Borde rline -High : 150-1 99 mg/dl High: 200-4 99 mg/dl Very High: >500 mg/dl Refer ence range recom menda tions from the Natio nal Josette stero l Educa tion Progr am (NCEP ), 1. Not Available [facility] [address] [place], [address], 12/02/2018 09:43:06 12/03/1912/02/2018 lipid panel , serum [...] Progr am (NCEP ), 1. Not Available [facility] [address] [place], [address], 12/02/2018 09:43:06 12/03/19 19 12/02/2018 lipid panel [...] days of colle ction . Not Available [facility] [address] [place], [address], 12/02/2018 09:43:06 Result Notes None recorded. 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 Procedures Surgical History Date Name Laterality Status Provider Name and Address Organization Details Recorded Time 10/21/19 19 Medication Review/Reconcili ation completed Jewels Dumont [facility] 10/20/2018 09:38:59 10/21/19 19 Pain Assessment completed Jewels Dumont [facility] 10/20/2018 09:33:54 05/29/20 18 Medication Review/Reconcili ation completed [facility] 05/29/2018 16:25:45 05/09/20 18 Removal of Sutures Placed By Another Physician completed [facility] 05/09/2018 13:37:16 05/09/20 18 Medication Review/Reconcili ation completed [facility] 05/09/2018 13:36:59 04/10/20 17 Colonoscopy completed [facility] 10/17/2017 16:33:27 06/10/19 16 Gastric Bypass completed [facility] 08/27/2017 16:48:22 06/10/19 16 Scr mammo bi incl cad completed [facility] 10/17/2017 16:33:41 06/10/19 03 Partial Hysterectomy completed [facility] 08/27/2017 16:47:20 Imaging Results None recorded. Procedure Notes None recorded. Medical Equipment None Reported. Allergies Allergen ID Allergen Name Allergen Category Reaction Reaction Severity Criticality Documentation Date Start Date Code Code System Note Provider Name and Address Organization Details Recorded Time 2270 Augmentin medicatio n angioedem a severe Not available 05/14/2018 62552 2 RxNorm Selina Cervantes, [address], [address] [place] [address] 8 13:27:59 Medications Name Sig Start Date [...] 8 162.56 cm 61 /min 43.3 kg/m2 001474. 28 g 98 % 98 % 120 mm[Hg] 87 mm[Hg] [facility] 8 16:50:31 Date Recorded Body height Oxygen saturation Oxygen saturation in Arterial blood by Pulse oximetry Body mass index (BMI) Body weight Heart rate Systolic blood pressure Diastolic blood pressure Provider Name and Address Organization Details Last Updated DateTime 8 162.56 cm 99 % 99 % 42.6 kg/m2 905097. 91 g 70 /min 130 mm[Hg] 80 mm[Hg] [facility] 8 16:37:15 Date Recorded Body height Provider Name an d Address Organization Details Last Updated DateTime 05/09/2018 162.56 cm Jewels [facility] 05/09/2018 13:20:06 Date Recorded Body mass index (BMI) Body weight Heart rate Systolic blood pressure Diastolic blood pressure Provider Name and Address Organization Details Last Updated DateTime 05/09/2018 43.9 kg/m2 538442.6 5 g 78 /min 129 mm[Hg] 81 mm[Hg] Radha [facility] 8 13:36:47 Date Recorded Body height Body mass index (BMI) Body weight Heart rate Oxygen saturation Oxygen saturation in Arterial blood by Pulse oximetry Systolic blood pressure Diastolic blood pressure Provider Name and Address Organization Details Last Updated DateTime 8 162.56 cm 43.9 kg/m2 268426. 65 g 80 /min 99 % 99 % 132 mm[Hg] 80 mm[Hg] [facility] 8 16:25:56 Date Recorded Body height Oxygen saturation Oxygen saturation in Arterial blood by Pulse oximetry Heart rate Body mass index (BMI) Body weight Systolic blood pressure Diastolic blood pressure Provider Name and Address Organization Details Last Updated DateTime 9 162.56 cm 98 % 98 % 60 /min 43.9 kg/m2 132441. 65 g 118 mm[Hg] 82 mm[Hg] Jewels Dumont [facility] 9 09:37:04 Social History Question Answer Notes LastModified by Organizat ion Details LastModified Time Tobacco Smoking Status Never Smoker Not Available [employer] 04/12/2020 03:10:53 Do You Have An Advance Directive? Yes [id number] Information not available 04/12/2020 What Is Your Level Of Caffeine Consumption? Occasional [id number] Information not available 04/12/2020 Which Illicit Or Recreational Drugs Have You Used? None [id number] Information not available 04/12/2020 Education 4 Year College Informatio n not available 08/27/2017 Hard Of Hearing Or Deaf In One Or Both Ears? No Information not available 08/27/2017 Legally Blind In One Or Both Eyes? No Information not available 08/27/2017 Live Alone Or With Others? With Others Information not available 08/27/2017 What Was The Date Of Your Most Recent Tobacco Screening? 10/20/2018 [id number] Information not available 04/12/2020 How Many Children Do You Have? 0 [id number] Information not available 04/12/2020 Sex: Unknown Functional Status Question Answer Note LastModified by [employer] Details LastModified Time Are you currently employed? Yes [id number] Information not available 04/12/2020 Are you able to walk? YESWOREST [id number] Information not available 04/12/2020 Are you able to care for yourself? 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 Occasional walks with spouse 3 x per week [id number] Information not available 04/12/2020 Mental Status None [...] Code Diagnosis Note [id number] Robinson WuDO [address] [address] 08/27/2017 16:22:59 08/27/2017 17:13:08 Body mass index 40+ - severely obese 054326108 Z68.41 BMI 43.3 Elevated blood-pressure reading without diagnosis of hypertension 010358625 R03.0 Adult heal th examination 976342605 Z00.00 [id number] [address] Wudelilah [address] [address] 10/17/2017 16:02:09 10/17/2017 16:54:22 Adult health examination 664588181 Z00.00 The patient was advised to continue a healthy diet and exercise regularly. She also was advised to: {{followup with a gastroente rologist for a colonoscop y have a dermatolog y skin screening have a moving picture producer evaluation have a mammogram *}} {{followup with a gastroente rologist for a colonoscop y have a dermatolog y skin screening have a moving picture producer evaluation have a mammogram }} {{followup with a gastroente rologist for a colonoscop y have a dermatolog y skin screening have a moving picture producer evaluation have a mammogram} }. Labs will be sent to evaluate blood count, renal function lipids and vitamin D. Depression screening 171 127952 Z13.89 Body mass index 40+ - severely obese 457241180 Z68.41 BMI 42.6 [id number] Robinson NeshaJhony Jarochodavid DO [address] [address] 05/09/2018 13:12:19 05/09/2018 13:55:32 Facial laceration 933390712 S01.81XA 5 sutures removed from nose. wound edges well approximat ed and healing normally. Steri strips placed to assist with furhter wound healing. [id number] [address] 05/29/2018 16:21:05 05/29/2018 16:57:56 Eruption 965452722 R21 there is erythema but getting better. The wound is well approximat ed and healing well. [id number] Robinson Lau, DO [address] [facility] [address] 10/20/2018 09:33:20 10/20/2018 10:22:11 Adult health examination 763160279 Z00.00 The patient was advised to continue a healthy diet and exercise regularly. She also was advised to: {{followup with a gastroente rologist for a colonoscop y have a dermatolog y skin screening have a moving picture producer evaluation have a mammogram *}} {{continue wt loss program. # followup with a gastroente rologist for a colonoscop y have a dermatolog y skin screening have a moving picture producer evaluation have a mammogram }} {{followup with a gastroente rologist for a colonoscop y have a dermatolog y skin screening have a moving picture producer evaluation have a mammogram} }. Labs will be sent to evaluate blood count, renal function lipids and vitamin D. Depression screening 171 345868 Z13.89 Administra tion of pneumococcal vaccine 85063997 Z23 Screening for malignant neoplasm of urinary system 960410503 Z12.6 Hyperuricemia 02123135 E 79.0 Had gout like sx in [...] Name 08/27/2017 1 [place]) [id number] Jodine [place] [id number] 540 Jodine [place] 10/17/2017 1 [place] [id number] Jodine [place] [id number] 540 Jodine [place] 05/09/2018 1 [place] [id number] Jodine [place] [id number] 540 Jodine [place] 05/29/2018 1 [place] [id number] Jodine [place] [id number] 540 Jodine [place] 10/20/2018 1 [place] (O) [id number] Allegra Kline [id number] 540 Allegra Kline Notes Date Note Type Note Provider Name and Address Organization Details Recorded Time 08/27/2017 text/html patient is here for a NPOV. patient has no complaints. Robinson Lau DO [address] [place] [address], [phone] 08/27/2017 17:08:33 10/17/2017 text/html Annual WellnessReported bypatient.Diet [...] with friends, family or neighbors. Robinson Lau [address], [phone], [facility] 10/17/2017 16:52:01 05/09/2018 text/html PT IS HERE FOR A SUTURE REMOVAL ON HER NOSE. Robinson Lau DO [address] [place] [address], [phone], [facility] 05/09/2018 13:55:46 05/29/2018 text/html patient is here for f/u to suture removal. patient questioning one area tht is not healing as fast as the rest. Robinson Lau DO [address] [place] [address], [phone], [facility] 05/29/2018 16:38:06 10/20/2018 text/html Annual WellnessReported [...] friends, family or neighbors. Robinson Lau DO [address] [place] [address], [phone], [facility] 10/20/2018 09:58:06 OBGyn Episode No OBEpisode recorded.
--- OUTSIDE RECORDS SUMMARY | 2024-10-28 10:16 | XMS_ITS | Encounter Summary ---
Author Organization [facility] Address [address] [place] [address] Care Team Providers Care Yard Labor Supervisor Name Role Phone None, None Primary Care Provider Carmen Gaines NP Primary Care Provider Encounter Details Date Type Department Care Team (Late st Contact Info) Description 12/10/2014 Scanned Document [address] [place] [phone] Provider, Generic Social History Tobacco Use Types [...] on filedocumented in this encounter Care Teams Yard Labor Supervisor Relationship Specialty Start Date End Date None, None PCP - General 09/20/15 11/27/15 Carmen Little NP [address] [place] [address] PCP - General 11/28/15 documented as of this encounter
--- OUTSIDE RECORDS SUMMARY | 2024-10-28 10:16 | XMS_ITS | Encounter Summary ---
Author Organization [facility] Address [address] [place] [address] Care Team Providers Care Metal Hanger Name Role Phone Carmen Little NP Primary Care Provider [phone] Encounter Details Date Type Department Care Team (Late st Contact Info) Description 03/28/2016 Scanned Document [facility] Bariatric Surgery [address] [address] Rogelio Langley MD [address] [place] [address] Social History Tobacco Use Types Packs/Day Years [...] on filedocumented in this encounter Care Teams Metal Hanger Relationship Specialty Start Date End Date Carmen Little NP [address] [place] [address] PCP - General 11/28/15 documented as of this encounter
--- OUTSIDE RECORDS SUMMARY | 2024-10-28 10:16 | XMS_ITS | Encounter Summary ---
Author Organization [facility] Address [address] [place] [address] Care Team Providers Care Commissioner Of Internal Revenue Name Role Phone None, None Primary Care Provider Carmen Gaines NP Primary Care Provider Encounter Details Date Type Department Care Team (Late st Contact Info) Description 12/14/2014 Scanned Document [address] [place] [phone] Provider, Generic Social History Tobacco Use Types [...] on filedocumented in this encounter Care Teams Commissioner Of Internal Revenue Relationship Specialty Start Date End Date None, None PCP - General 09/20/15 11/27/15 Carmen Little NP [address] [place] [address] PCP - General 11/28/15 documented as of this encounter
--- OUTSIDE RECORDS SUMMARY | 2024-10-28 10:17 | XMS_ITS | Clinical Summary ---
Author Organization [facility] Address [address] [place] [address] Care Team Providers Care Mold Stamper Name Role Phone Carmen Little NP Primary Care Provider [phone] Allergies No known active allergies Medications Multiple [...] Zoster (Shingles) Vaccine (1 of 2) 2013 COVID-19 Vaccine ( - 2023-2 5 season) 2024 Influenza Vaccine 01/08/2025 DTaP/Tdap/Td Vaccines (2 - T d or Tdap) 05/03/2028 05/03/2018 RSV Vaccine 60 years and old er and Patients (1 - 1-dose 75+ series) 2038 Hepatitis B Vaccines Aged Out No long er eligible based on patient's age to complete this topic Insurance [facility] Care Teams Mold Stamper Relationship Specialty Start Date End Date Carmen Little NP [address] [facility] [place] [address] PCP - General 11/28/15
--- OUTSIDE RECORDS SUMMARY | 2024-10-28 10:17 | XMS_ITS | Data Portability ---
Author Organization [place] [facility], [facility] Address [address] [facility] [address] [place] [address] Assessment No assessment recorded. Plan of Treatment Reminders Order Date Submit Date Provider Last Modified By Organization Details Last Modified Time Details Appointments None recorded. Lab None recorded. Referral orthopedic surgeon referral 2021 mark Garrison MD, [address], [place], [address], 16:19:42 physical therapist referral 2021 [email or web address] [facility], [address], [place], [address], 13:01:24 Procedures None recorded. Surgeries None recorded. Imaging XR, lumbar spine [address] [facility], [address], [address], [place], [address], 18:03:25 Medication Orders cyclobenza arnaldo 10 mg tablet 2021 [id number] [facility] [employer], [address] [place], [id number], 18:20:04 Patient TargetsNo targets recorded. Patient Instructions Encounter Date Encounter Id Patient Instructions Last Modified By Organization Details Last Modified Time 01/22/2022 [id number] back care and preventing injuries: care instructions [email or web address] Not available 01/22/2022 17:34:37 getting back to normal after low back pain: care instructions [email or web address] Not available 01/22/2022 17:34:37 learning about relief for back pain [email or web address] Not available 01/22/2022 17:34:37 Pain Relief __X__ [...] If you have any concerns, please call [phone]. If an emergency develops and you cannot reach us, please contact the [facility] Emergency Department at [phone] [email or web address] Not available 01/22/2022 18:01:02 Reason for Referral [...] [facility] [place] [address], [place], [address], 01/23/2022 12:46:23 Result Notes None recorded. Procedures Surgical History Date Name Laterality Status Provider Name and Address Organization Details Recorded Time Hysterectomy completed Xochilt mccray CMA [facility] 01/22/2022 17:06:36 Imaging Results Imaging Date Name Status LastModified by Organiz ation Details LastModified Time 01/22/2022 XR, lumbar spine completed apolinar [facility] [place] [address], [place], [address], 01/23/2022 12:46:23 Procedure Notes None recorded. Medical [...] % 97 % 16 /min 45.7 kg/m2 905988. 27 g 145 mm[Hg] 106 mm[Hg] 147 mm[Hg] 91 mm[Hg] Xochilt Sullivan CMA [facility] 17:09:25 Social History Question Answer Notes LastModified by Campaign Monitorat ion Details LastModified Time Tobacco Smoking Status Never Smoker Xochilt Sullivan CMA null, [facility] 01/22/2022 17:06:26 Do You Feel Safe At Home? Feel Safe [email or web address] Information not available 01/22/2022 What Was The Date Of Your Most Recent Tobacco Screening? 01/22/2022 [email or web address] Information not available 01/22/2022 Sex: Unknown Functional Status Question Answer Note LastModified by Organizat ion Details LastModified Time How many times per week do you consume alcohol? 1-2 times per week 1 drink every few weeks [email or web address] Information not available 01/22/2022 Do you use any illicit or recreational drugs? No [email or web address] Information not available 01/22/2022 Do you or have you ever used any other forms of tobacco or nicotine? No [email or web address] Information not available 01/22/2022 What is your level of alcohol consumption? Occasional Information not available 01/22/2022 Mental Status None recorded. Family History Relationship Description Onset Age of this Age Resolved Age Notes LastModified by Organization Details LastModified Time Father History of hypertension [email or web address] Not available 17:05:52 Father Malignant neoplastic disease [email or web address] Not available 2021 17:05:58 Mother History of hypertension [email or web address] Not available 17:05:52 Mother Malignant neoplastic disease [email or web address] Not available 2021 17:05:58 Medical History Condition Response ANXIETY DISORDER N ASTHMA N EAR PROBLEMS N URINARY/BLADDER/KIDNEY PROBLEMS N DIABETES N HIGH CHOLESTEROL N DEPRESSION (INCLUDING POST ) N HAVE YOU BEEN HOSPITALIZED OR SEEN IN [facility] IN THE PAST YEAR ? N HYPERTENSION Y Gynecological History Statement/Question Response If Post Menopausal, Age at Menopause Obstetrics History GPAL:G 0 P 0 0 0 0 Past Encounters Encounter ID Performer Location Encounter Start Date Encounter Closed Date Diagnosis/Indication Diagnosis SNOMED-CT Code Diagnosis ICD10 Code Diagnosis Note [id number] [facility]LLY MAGA[facility]A [facility] [address] [place] [address] 01/22/2022 16:07:35 01/22/2022 18:48:28 Low back pain 487777954 M54.50 Impression :Degenerat yayo changes of the [...] Concerns Section Related Observation LastModified by Organization Angela hurt LastModified Time None Recorded Concern Status LastModified by Organization Details LastModified Time None Recorded Advance Directives Directive None Recorded Payers Insurance Date Sequence Insurance Name Policy Number Policy Gomez Covered Member ID Gomez Member ID Guarantor Name 01/22/[address] [facility] [id number] Allegra Kline [id number] Allegra Kline Notes Date Note Type Note Provider Name and Address Organization Details Recorded Time 01/22/2022 text/html 56 year old fema jocelyn with history of chronic low back pain presents with increased low back pain x past 3 months. Patient is RV'ing in [place], traveled from [place]. 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 She was seen at an urgent care while in [place] at onset 3 months ago. She was prescribed a muscle relaxer with minimal relief. She is taking Ibuprofen and Tylenol with benefit.denies numbness, tingling or weakness of extremities;denies saddle paresthesia;denies fever;denies bladder or bowel dysfunction;denies any urinary tract complaints/concern s;denies rash;feels well otherwise, no other complaints or concerns; MOLLY MAGAÑA [address], [place], [address], [facility] 01/24/2022 22:39:35 OBGyn Episode No OBEpisode recorded.
--- OUTSIDE RECORDS SUMMARY | 2024-10-28 10:17 | XMS_ITS | Encounter Summary ---
Author Organization [facility] Address [address] [place] [address] Care Team Providers Care Courier Delivery Driver Name Role Phone Carmen Little NP Primary Care Provider [phone] Encounter Details Date Type Department Care Team (Late st Contact Info) Description 10/20/2018 Scanned Document [facility] Rheumatology [address] [phone] Robinson Lau, DO [address] [place], [place] [id number] Social History Tobacco Use Types Packs/Day Years [...] on filedocumented in this encounter Care Teams Courier Delivery Driver Relationship Specialty Start Date End Date Carmen Little NP [address] [facility] [place] [address] PCP - General 11/28/15 documented as of this encounter
--- OUTSIDE RECORDS SUMMARY | 2024-10-28 10:17 | XMS_ITS | Data Portability ---
Author Organization [facility] [employer] Address [address] [address] Assessment No assessment recorded. Plan of Treatment [...] SNOMED-CT Code Diagnosis ICD10 Code Diagnosis Note [id number] Jose Guadalupe Florse PA-C [facility] [address] [place] [address] 03/27/2022 12:24:27 03/27/2022 14:51:44 Administration of SARS-CoV-2 mRNA vaccine [id number] Z23 Booster Guidance: Moderna COVID-19 Vaccine, Bivalent [...] Gomez Member ID Guarantor Name 03/27/2022 1 [facility] [id number] Jodine Ranjana [place] [id number] Jodine Ranjana [place] OBGyn Episode No OBEpisode recorded.
--- OUTSIDE RECORDS SUMMARY | 2024-10-28 10:17 | XMS_ITS | Encounter Summary ---
Author Organization [facility] Address [address] [place] [address] Care Team Providers Care Auto Finance Sales Rep Name Role Phone None, None Primary Care Provider Carmen Gaines NP Primary Care Provider [phone] Encounter Details Date Type Department Care Team (Late st Contact Info) Description 10/03/2015 Scanned Document [address] [place] [phone] Provider, Generic Social History Tobacco Use [...] by an unspecified provider. us Generic Provider [facility] HX PATH PROCEDURES Final Re sult documented in this encounter Visit Diagnoses Not on filedocumented in this encounter Care Teams Auto Finance Sales Rep Relationship Specialty Start Date End Date None, None PCP - General 09/20/15 11/27/15 Carmen Little NP [address] [place] [address] PCP - General 11/28/15 documented as of this encounter
--- OUTSIDE RECORDS SUMMARY | 2024-10-28 10:17 | XMS_ITS | Encounter Summary ---
Author Organization [facility] Address [address] [place] [address] Care Team Providers Care Almond Blancher Hand Name Role Phone None, None Primary Care Provider Carmen Gaines NP Primary Care Provider [phone] Encounter Details Date Type Department Care Team (Late st Contact Info) Description 10/06/2015 Scanned Document [address] [place] [phone] Provider, Generic Social History Tobacco Use [...] by an unspecified provider. us Generic Provider [facility] HX PATH PROCEDURES Final Re sult documented in this encounter Visit Diagnoses Not on filedocumented in this encounter Care Teams Almond Blancher Hand Relationship Specialty Start Date End Date None, None PCP - General 09/20/15 11/27/15 Carmen Little NP [address] [place] [address] PCP - General 11/28/15 documented as of this encounter
--- OUTSIDE RECORDS SUMMARY | 2024-10-28 10:17 | XMS_ITS | Encounter Summary ---
Author Organization [facility] Address [address] [place] [address] Care Team Providers Care Ui Engineer Name Role Phone None, None Primary Care Provider Carmen Gaines NP Primary Care Provider [phone] Encounter Details Date Type Department Care Team (Late st Contact Info) Description 10/17/2015 Scanned Document [address] [place] [phone] Provider, Generic Social History Tobacco Use [...] on filedocumented in this encounter Care Teams Ui Engineer Relationship Specialty Start Date End Date None, None PCP - General 09/20/15 11/27/15 Carmen Little NP [address] [place] [address] PCP - General 11/28/15 documented as of this encounter
== END 2024-10-28 12:16 | disposition home or self-care (01) ==
LOC: HO.HWS 09:00
PROVIDERS: PCP Nurse Practitioner Family; Visit Provider Advanced Practice Midwife
DX: Z01.419 Encounter for gynecological examination (general) (routine) without abnormal findings (principal)
CPT/HCPCS: 99396; 99459

== ENCOUNTER → 2024-10-28 09:00 | Outpatient (BNVA) | payer OTHER, SELFPAY | PROVIDERS: PCP Nurse Practitioner Family; Visit Provider Advanced Practice Midwife ==